=== PATIENT | male | born 1975 | race Caucasian/White ===

== ENCOUNTER → 2018-08-05 15:20 | Outpatient (CLI) | payer BC, SELFPAY ==
[2018-08-05 17:38] LABS: Hematocrit 44.7 % (40-54); Hemoglobin 14.6 g/dl (13.0-16.5); Mean Corp Hgb Conc 32.7 g/gl (32-36); Mean Corpuscular Hgb 28.1 pg (27.0-32.0); Mean Corpuscular Volume 86.1 fL (80-94); Mean Platelet Vol. 9.5 fl (6.2-12.0); Platelet Count 223 K/mm3 (150-450); RBC Distribution Width CV 13.4 % (11.6-14.6); RBC Distribution Width SD 42.1 fl (35.1-43.9); Red Blood Count 5.19 M/mm3 (4.6-6.2); Scan Indicated on CBC? Y/N NO; White Blood Count 6.4 K/mm3 (4.4-11.0)
[2018-08-05 17:54] LABS: Vitamin B12 696 pg/mL (211-911); Vitamin D,25 Hydroxy 24.1 ng/mL (29.95-100.01)
[2018-08-05 17:55] LABS: Cholesterol 141 mg/dL (200); Estradiol 19.3 pg/mL; Glucose 99 mg/dL (74-106); High Density Lipoprotein 40 mg/dL; Thyroid Stim Hormone (TSH) 1.89 uIU/mL (0.358-3.74); Triglycerides 83 mg/dL; Very Low Density Lipoprotein 17 mg/dL (5-40)
== END ==
PROVIDERS: Referring Provider Specialist; Visit Provider Specialist
DX: E27.40 Unspecified adrenocortical insufficiency (principal); E07.89 Other specified disorders of thyroid; R53.83 Other fatigue
CPT/HCPCS: 36415; 80061; 82306; 82607; 82670; 82947; 84153; 84403; 84443; 85027; G0103

== ENCOUNTER → 2020-09-18 16:53 | Outpatient (CLI) | payer BC, SELFPAY ==
[2020-09-18 17:49] LABS: Absolute Lymphocyte Count 2.21 X10^3/uL (0.83-4.51); Basophil% 1.2 % (0-1); Eosinophil# 0.22 X10^3/uL; Eosinophils% 2.6 % (0-5); Hematocrit 46.7 % (40-54); Hemoglobin 15.5 g/dL (13.0-16.5); Lymphocyte # 2.21 X10^3/ul (4.0); Lymphocyte % 26.3 % (19-41); Mean Corp Hgb Conc 33.2 g/dL (32-36); Mean Corpuscular Hgb 28.5 pg (27.0-32.0); Mean Platelet Vol. 9.7 fl (6.2-12.0); Monocyte# 0.85 X10^3/uL; Monocyte% 10.1 % (0-10); NRBC Flagged by Analyzer 0 % (0-5); Neutrophil # 4.98 X10^3/uL (2.7-7.7); Neutrophil % 59.4 % (47-70); Platelet Count 282 K/mm3 (150-450); RBC Distribution Width CV 13.2 % (11.6-14.6); RBC Distribution Width SD 40.6 fl (35.1-43.9); Red Blood Count 5.43 M/mm3 (4.6-6.2); White Blood Count 8.4 K/mm3 (4.4-11.0)
[2020-09-18 18:45] LABS: AST(SGOT) 37 U/L (15-37); Alanine Aminotransfer ALT/SGPT 65 U/L (16-61); Albumin, Serum 3.8 g/dL (3.2-5.0); Alkaline Phosphatase 118 U/L (45-117); Anion Gap 4 (5-15); BUN 14 mg/dL (7-18); BUN/Creat Ratio 15.9 RATIO (10-20); Calcium,Total 8.8 mg/dL (8.5-10.1); Chloride 112 mmol/L (98-107); Creatinine, Serum 0.88 mg/dL (0.70-1.30); EST Glomerular Filtration Rate 99 mL/min (>60); Est Glom Filt Rate - Afr Amer 120 mL/min (>60); Globulin 3.8 g/dL (2.2-4.2); Glucose 87 mg/dL (74-106); Potassium 3.9 mmol/L (3.5-5.1); Protein, Total 7.6 g/dL (6.4-8.2); Sodium Level 143 mmol/L (136-145)
== END ==
PROVIDERS: Visit Provider Podiatrist Foot & Ankle Surgery
DX: Z01.818 Encounter for other preprocedural examination (principal)
CPT/HCPCS: 36415; 80053; 85025

== ENCOUNTER → 2022-04-05 | Outpatient (CLI) | payer BC, SELFPAY ==
[2022-04-10 12:28] LABS: H. PYLORI STOOL AG Negative (Negative)
== END | disposition home or self-care (01) ==
PROVIDERS: PCP Family Medicine; Referring Provider Family Medicine; Visit Provider Family Medicine
DX: Z20.09 Contact with and (suspected) exposure to other intestinal infectious diseases (principal)

== ENCOUNTER 2023-02-11 11:19 | Emergency (ER) | payer OTHER, BC, SELFPAY ==
[2023-02-11 11:20] VITALS: BP 109/85; PULSE 68; RESP 18; TEMP 36.6; O2SAT 97; BMI 36.0
--- NOTE | 2023-02-11 11:31 | EX.ED.DYSGE1 ---
HPI History of Present Illness Chief Complaint: Lower Extremity Injury PFSH PFS Medical History no medical history Allergy/AdvReac Type Severity Reaction Status Date / Time Penicillins AdvReac Unknown PT UNSURE Verified 02/11/23 11:57 OF REACTION aspirin [ASA] AdvReac Bleeding Verified 02/11/23 12:19 Surgical History no surgical history Social History Smoking Status: Former smoker EXAM Physical Exam Const Vital Signs: 02/11/23 11:20 02/11/23 12:05 02/11/23 13:49 Temperature 97.8 F Temperature Source Oral Pulse Rate 68 82 Respiratory Rate 18 16 Blood Pressure 109/85 H 120/80 Blood Pressure Mean 93 93 Pulse Ox 97 98 95 Oxygen Delivery Method Room Air Room Air MDM MDM MDM Narrative Medical decision making narrative: HISTORY OF PRESENT ILLNESS: 47-year-old male here for right foot pain after dropping heavy object while at work. Patient states after this he became dizzy, lightheaded thought he may have lost consciousness. Denies any chest pain or shortness of breath. The patient denies recent surgery in the last 4 weeks or immobilization in the last 3 days, denies previous diagnosis of DVT or PE, hemoptysis, unilateral leg swelling or malignancy with treatment the last 6 months. No estrogen use noted. Patient denies sudden onset of pain, no tearing sensation, no migratory symptoms, no new numbness, weakness or loss of sensation. Patient denies family history or personal history of Marfan syndrome or Amy-Danlos REVIEW OF SYMPTOMS: Pertinent positives: Lightheadedness, dizziness, ankle pain, numbness Pertinent negatives: Chest pain, shortness of breath, focal weakness, loss of sensation PHYSICAL EXAM: Nursing triage notes reviewed, Vital signs reviewed Constitutional: please see mdm HENT: MMM Eyes: Pupils equal round and reactive to light, Extraocular muscles intact Neck: No stridor, no JVD, full neck ROM Lungs: Clear to auscultation, No wheezing or rales. No increased work of breathing, no conversational dyspnea, no accessory muscle use, no nasal flaring. No respiratory distress noted Heart: Regular rate and rhythm, No murmurs, No rubs and No gallops, 2+ distal pulses (radial, femoral, posterior tibial) in all extremities Abdomen: Soft, there is no tenderness, rigidity, rebound or guarding, no obvious peritoneal signs, no palpable pulsatile abdominal masses, no auscultated abdominal bruit : No CVAT Extremities: No edema, no obvious deformity, compartments are soft Neuro: Initial neuro exam: Alert and oriented x3, neuro exam at baseline, cranial nerves II through XII are intact. No pain with extraocular muscle movement. There is negative test of skew. Normal speech. 5 of 5 strength in upper and lower extremities in flexion extension. Intact sensation to light touch in upper and lower extremity dermatomes. No truncal or extremity ataxia. No dysdiadochokinesia. Normal gait. 2+ reflexes. No meningeal signs. Negative Babinski. NIH of 0. In bilateral lower extremities intact sensation L1-S1 dermatomal distributions. Intact 5/5 strength in hip flexion (T12-L3). Knee extension (L2-L4). Ankle dorsiflexion (L4-L5). Ankle plantar flexion (S1). Great toe extension (L5). 2+ patellar and Achilles DTRs. Repeat neuro exam: Alert and oriented x3, neuro exam at baseline, cranial nerves II through XII are intact. No pain with extraocular muscle movement. There is negative test of skew. Normal speech. 5 of 5 strength in upper and lower extremities in flexion extension. Intact sensation to light touch in upper and lower extremity dermatomes. No truncal or extremity ataxia. No dysdiadochokinesia. Normal gait. 2+ reflexes. No meningeal signs. Negative Babinski. NIH of 0 Skin: Small abrasion noted to the right medial malleolus, no obvious bruising, edema, lacerations MEDICAL DECISION MAKING: Chief Complaint: Syncope, right foot pain External records reviewed: No recent cardiac catheterization, stress test or echocardiogram noted MDM Narrative: I considered the following differential diagnosis: Vasovagal syncope, dehydration, arrhythmia, anemia, electrolyte abnormality fracture dislocation The patient was initially hemodynamically stable, afebrile, nontoxic-appearing. Exam without focal neurologic deficits, NIH of 0. Right ankle was neurovascular intact with no obvious deformities. Given the patient's report of feeling lightheaded, dizzy and his report of near syncope I obtained a broad lab and imaging work-up to further elucidate the etiology of the patient's complaints. Labs and images without significant findings to suggest myocardial ischemia, anemia, electrode abnormalities, pneumonia, fracture dislocation to the right ankle. Patient is likely suffering right ankle contusion which precipitated a vasovagal event. He was reassessed after 1 L normal saline states he felt symptomatically better. Repeat neurologic exam remained intact. The patient is appropriate for discharge home for outpatient evaluation management by his primary care physician. Strict return precautions were discussed. Family updated. All questions answered. I considered intracranial pathologies of subarachnoid hemorrhage however patient denied a headache. I also considered pulmonary embolism however patient had a low risk Wells score, PERC negative. I have a low suspicion for pulmonary VTE at this time. Also consider dissection however patient did not have any chest pain, pulse deficits or I considered acute CVA however patient no focal neurologic deficits NIH of 0 below suspicion for stroke at this time Aspirin was given for mortality benefit. Patient refused aspirin. Labs and images were remarkable for no evidence of significant anemia, electrolyte abnormalities, dehydration, myocardial ischemia. EKG without evidence of myocardial ischemia. Delta troponin was also negative. Factors affecting care: None Social determinants of health: Former smoker History obtained from others: The patient's , family friend Shared decision making: I will have a discussion with the patient and or visitors regarding risk/benefits of further testing or admission. They will be made aware of of the risk/benefits inherent in this decision they will be given the opportunity to voice understanding. Consults: None History & Record Review Discussion w/independent historian: Patient and Family Lab Data Attestation: I reviewed the patient's lab results. Lab results narrative: EKG with normal sinus rhythm, normal axis, normal intervals, no STEMI CBC without leukocytosis, severe anemia, no thrombocytopenia. Troponin is negative, no evidence of myocardial ischemia, delta troponin negative BMP with mild hypokalemia, no other significant electrolyte abnormalities, no anion gap to suggest end-organ hypoperfusion, Labs: Laboratory Results - last 24 hr 02/11/23 02/11/23 02/11/23 12:15 12:15 14:25 WBC 8.4 RBC 5.53 Hgb 15.6 Hct 46.5 MCV 84.1 MCH 28.2 MCHC 33.5 RDW Std Deviation 38.8 RDW Coeff of Martina 12.8 Plt Count 273 MPV 9.5 Immature Gran % (Auto) 0.200 Neut % (Auto) 49.7 Lymph % (Auto) 36.0 [place] % (Auto) 9.5 Eos % (Auto) 3.6 Baso % (Auto) 1.0 Absolute Neuts (auto) 4.2 Absolute Lymphs (auto) 3.02 Nucleated RBC % 0 Sodium 139 Potassium 3.1 L Chloride 105 Carbon Dioxide 25.0 Anion Gap 9 BUN 16 Creatinine 0.88 Estim Creat Clear Calc 98.24 Est GFR (MDRD) Af Amer 118 Est GFR (MDRD) Non-Af 98 BUN/Creatinine Ratio 18.2 Glucose 108 H Calcium 9.3 Troponin I High Sens 4 4 Radiography Chest X-Ray - ED: Read by ED Physician Diagnostic Testing: Clinical Impression(s) from Imaging Studies Chest X-Ray 02/11/23 12:05 IMPRESSION: Hyperinflation. The lungs are clear. Electronically Signed: Dawson Saldaña MD at 12:47 EDT , Ankle X-Ray 02/11/23 12:20 IMPRESSION: Plantar spur. No acute abnormality is seen. Electronically Signed: Dawson Saldaña MD at 12:46 EDT , I have personally reviewed the patient's chest x-ray. Chest x-ray is unremarkable for pulmonary edema, pneumothorax, pneumonia or focal cardiopulmonary abnormality. Discharge Plan Triage Chief Complaint: Lower Extremity Injury ED Provider: Tez Webb Dx/Rx/DC Orders Instructions: ED Contusion, Lower Extremity, ED Fainting, Vagal Reaction Stand Alone Forms: ED Work / School Excuse Primary Care Provider: MINA BARRY Referrals: MINA BARRY MD [Primary Care Provider] - Activity Restrictions/Additional Instructions: Thank you for trusting us with your care today! Please take Tylenol (2 pills, 650 mg), ibuprofen (2 pills, 400 mg) every 6 hours as needed for pain and fever control. Please return to the emergency department if your symptoms change or worsen. Please follow with your primary care physician for further outpatient evaluation and management. Disposition Disposition: Home, Self Care
[2023-02-11 12:05] VITALS: O2SAT 98
--- NOTE | 2023-02-11 12:05 | EKG12_ITS ---
Test Reason : Blood Pressure : / mmHG Vent. Rate : 074 BPM Atrial Rate : 074 BPM P-R Int : 188 ms QRS Dur : 080 ms QT Int : 384 ms P-R-T Axes : 046 010 003 degrees QTc Int : 426 ms Normal sinus rhythm Normal ECG Confirmed by PRESTON NICOLAS, LINA ([id number]), editorial assistant VINEET HARTMAN ([id number]) on 02/12/2023 12:54:57 P M Referred By: ONEL Confirmed By:ASHLEY JOHNSTON MD
--- NOTE | 2023-02-11 12:05 | RAD_ITS ---
STUDY: X-RAY CHEST REASON FOR EXAM: Male, 47 years old. Chest pain TECHNIQUE: Single AP portable view of the chest. COMPARISON: None. FINDINGS: EKG electrodes are seen. Hyperinflation. The lungs are clear. There is no demonstrated pleural abnormality. Normal size heart. Normal mediastinum and aguila. Normal visualized pulmonary arteries. Normal visualized aortic arch and descending thoracic aorta. There are diffuse degenerative changes of the visualized thoracic spine. Normal visualized ribs, clavicles, and shoulders. There is no demonstrated abnormality of the visualized soft tissue structures of the upper abdomen. RAD/Chest 1 View (Portable) IMPRESSION: Hyperinflation. The lungs are clear. Electronically Signed: Dawson Saldaña MD at 12:47 EDT ,
[2023-02-11] MEDS: 0.9% Normal Saline 1,000 ML 1000 ML IV (12:17)
--- NOTE | 2023-02-11 12:20 | RAD_ITS ---
STUDY: X-RAY - RIGHT ANKLE REASON FOR EXAM: Male, 47 years old. Ankle pain following injury. TECHNIQUE: 3 view(s) of the ankle. COMPARISON: None. FINDINGS: Normal visualized distal tibia and fibula. Normal medial and lateral malleoli. Normal tibiotalar articulation and ankle mortise. Plantar spur. The visualized subtalar, talonavicular, calcaneocuboid and tarsal articulations are normal. The soft tissue structures are unremarkable. RAD/Ankle min 3 Views IMPRESSION: Plantar spur. No acute abnormality is seen. Electronically Signed: Dawson Saldaña MD at 12:46 EDT ,
[2023-02-11 12:21] LABS: Absolute Lymphocyte Count 3.02 X10^3/uL (0.83-4.51); Absolute Neutrophil Count 4.2 X10^3/uL (2.0-7.7); Basophil# 0.08 X10^3/uL; Eosinophils% 3.6 % (0-5); Hematocrit 46.5 % (40-54); Hemoglobin 15.6 g/dL (13.0-16.5); Lymphocyte # 3.02 X10^3/ul (0.83-4.51); Mean Corp Hgb Conc 33.5 g/dL (32-36); Mean Corpuscular Hgb 28.2 pg (27.0-32.0); Mean Corpuscular Volume 84.1 fL (80-94); Mean Platelet Vol. 9.5 fl (6.2-12.0); Monocyte% 9.5 % (0-10); NRBC Flagged by Analyzer 0 % (0-5); Neutrophil # 4.18 X10^3/uL (2.7-7.7); Neutrophil % 49.7 % (47-70); Platelet Count 273 K/mm3 (150-450); RBC Distribution Width CV 12.8 % (11.6-14.6); RBC Distribution Width SD 38.8 fl (35.1-43.9); Red Blood Count 5.53 M/mm3 (4.6-6.2); White Blood Count 8.4 K/mm3 (4.4-11.0)
[2023-02-11 12:38] LABS: Anion Gap 9 (5-15); BUN 16 mg/dL (7-18); BUN/Creat Ratio 18.2 RATIO (10-20); Calcium,Total 9.3 mg/dL (8.5-10.1); Chloride 105 mmol/L (98-107); Creatinine, Serum 0.88 mg/dL (0.70-1.30); EST Glomerular Filtration Rate 98 mL/min (>60); Est Glom Filt Rate - Afr Amer 118 mL/min (>60); Estimated Creatinine Clearance 98.24 ml/min; Glucose 108 mg/dL (74-106); Potassium 3.1 mmol/L (3.5-5.1); Sodium Level 139 mmol/L (136-145); Troponin-I HS (w/2H Reflex) 4 pg/mL (3.0-78.0)
[2023-02-11 13:49] VITALS: BP 120/80; PULSE 82; RESP 16; O2SAT 95
[2023-02-11 14:17] LABS: Reflex Troponin-HS? (from REC) Y
[2023-02-11 14:51] LABS: Troponin-I HS 4 pg/mL (3.0-78.0)
[2023-02-11] MEDS: Potassium Chloride Oral Tablet 20 MEQ 40 MEQ PO (15:16)
[2023-02-11 15:19] VITALS: BP 117/87; RESP 16; O2SAT 98
== END 2023-02-11 15:21 | disposition home or self-care (01) ==
PROVIDERS: Emergency Provider Emergency Medicine; PCP Family Medicine; Visit Provider Emergency Medicine
DX: S90.01XA Contusion of right ankle, initial encounter (principal); R55 Syncope and collapse; R42 Dizziness and giddiness; Z87.891 Personal history of nicotine dependence; W20.8XXA Other cause of strike by thrown, projected or falling object, initial encounter; Y99.0 Civilian activity done for income or pay; Y92.89 Other specified places as the place of occurrence of the external cause
CPT/HCPCS: 36415; 71045; 73610; 80048; 84484; 85025; 93005; 96360; 99285; J7030; A4216

== ENCOUNTER 2023-03-26 17:50 | Emergency (ER) | payer BC, SELFPAY ==
[2023-03-26 17:52] VITALS: BP 141/106; PULSE 90; RESP 14; TEMP 36.6; O2SAT 96; BMI 34.4
--- NOTE | 2023-03-26 18:01 | CT_ITS ---
EXAM: CT Abdomen And Pelvis W/O Contrast Injection HISTORY: Pain UMBILICAL HERNIA, PAIN INTO GROIN. TECHNIQUE: Routine protocol CT abdomen and pelvis. IV Contrast: None.. Oral contrast: None. RADIATION DOSAGE (If Supplied By Facility): CTDIvol = ( 18.05 ) mGy, DLP = ( 996.58 ) mGycm Individualized dose optimization techniques were used for this CT. COMPARISON: CT abdomen and pelvis 04/01/2017. LIMITATIONS: None. FINDINGS: LOWER CHEST: Included lung bases are clear. LIVER: Grossly unremarkable. GALLBLADDER AND BILIARY TREE: Grossly unremarkable. PANCREAS: Grossly unremarkable. SPLEEN: Small calcifications previous granulomatous process. ADRENAL GLANDS: Grossly unremarkable. KIDNEYS AND URETERS: No calculi demonstrated. No hydronephrosis. PERITONEUM: No free air. No free fluid. BOWEL: No bowel obstruction. APPENDIX: Visualized and unremarkable. No evidence of acute appendicitis. VESSELS: Abdominal aorta is normal caliber. REPRODUCTIVE ORGANS: Grossly unremarkable URINARY BLADDER: Grossly unremarkable. ABDOMINAL WALL: Small right paraumbilical hernia contains only fat, no bowel, with small amount of fluid and mild stranding in the hernia sac. Overlying skin thickening. Small bilateral inguinal hernias containing only fat, no bowel, with no associated inflammatory changes. BONES: No acute abnormalities. CT/Abdomen/Pelvis without Cont IMPRESSION: Small fat-containing right periumbilical hernia with findings that can be seen with incarceration. Small fat-containing bilateral inguinal hernias without evidence of complication. No acute intra-abdominal findings. Electronically Signed: Abigail Hunter MD at 18:57 EDT ,
--- NOTE | 2023-03-26 18:02 | ED.VIS.GI ---
HPI HPI - GI History of Present Illness Chief Complaint: Abd Pain Detail of Chief Complaint: Abdominal pain Informant: patient Narrative Narrative: Abdominal pain that became severe about an hour ago. Patient presents to the emergency department with complaint of abdominal pain that initially was more mild yesterday. Today sudden onset of severe pain in the right lower abdomen and into his back and radiating into his groin. Patient also states that he has an umbilical hernia which she pushed in yesterday but seems to be more tender than usual. He has nausea but no vomiting. Denies fevers. Patient does have some urinary frequency. He denies hematuria. No history of kidney stones. Patient denies blood in his stool or black tarry stool. [facility] Medical History (Updated 03/26/23 @ 19:[address] Ines Nazario DO) Asthma Contusion of right ankle Vasovagal syndrome Home Medications hydrocodone-acetaminophen 5-325mg 5mg-325mg 1 tab PO Q4H PRN PRN Pain 2 days #10 TABLETS 03/26/23 [Rx Last Taken Unknown] meloxicam 15 mg tablet 15 mg PO DAILY 03/26/23 [History Last Taken Unknown] Allergy/AdvReac Type Severity Reaction Status Date / Time Penicillins AdvReac Unknown PT UNSURE Verified 03/26/23 17:51 OF REACTION aspirin [ASA] AdvReac Bleeding Verified 03/26/23 17:51 Family History no significant family his Surgical History Hx of tonsillectomy Social History Smoking Status: Former smoker alcohol intake: never ROS ROS ED Review of Systems ROS Unobtainable: other Constitutional Constitutional ED: Reports lethargy; Denies chills, fever(s), sweats or weight loss Eyes Eyes: Denies blurry vision, change in vision or diplopia ENT ENT ED: Denies rhinorrhea or sore throat Cardiovascular Cardiovascular: Denies chest pain, orthopnea or racing heartbeat Respiratory/Chest Respiratory/Chest: Denies cough, dyspnea, dyspnea on exertion, orthopnea or sputum Gastrointestinal Gastrointestinal: Reports abdominal pain and nausea; Denies diarrhea or vomiting Genitourinary Genitourinary ED: Denies dysuria, hematuria or urinary frequency Musculoskeletal Musculoskeletal: Denies arthralgias, back pain, myalgias or neck pain Integumentary Denies abscess, Abrasions or rash Neurologic Neurologic: Denies headache(s) or weakness Psychiatric Psychiatric: Denies anxiety, depression or suicidal thoughts Endocrine Endocrinology: Denies polydipsia, polyphagia or polyuria Hematologic/Lymphatic Hematologic/Lymphatic: Denies easy bleeding, easy bruising or lymphadenopathy Allergic/Immunologic Allergic/Immunologic ED: Denies mouth swelling, tongue swelling or urticaria EXAM Physical Exam Const Vital Signs: 03/26/23 17:52 Temperature 98 F Temperature Source Temporal Pulse Rate 90 Respiratory Rate 14 Blood Pressure 141/106 H Blood Pressure Mean 117 Pulse Ox 96 Oxygen Delivery Method Room Air Positive well nourished and well developed General Appearance ED: well developed and NAD HEENT Reports TM's clear and moist mucous membranes normocephalic and atraumatic; Negative for trauma or tenderness Tympanic Membrane ED: Yes TM's clear Eyes PERRL and EOMs intact bilaterally General Eye ED: Negative for pale conjunctiva or scleral icterus Neck no lymphadenopathy, supple and no JVD General: Negative for tenderness Chest Wall inspection of chest normal and palpation of chest normal Chest: Negative for tenderness Resp normal respiratory effort and clear to auscultation bilaterally Effort and Inspection: Negative for respiratory distress or pain with movement Auscultation: Negative for rhonchi, wheezes or diminished lung sounds Cardio regular rate, regular rhythm, S1 normal heart sound, S2 normal heart sound and no murmurs Peripheral Pulses: pulses 2+ throughout GI normal to inspection, nondistended, normoactive bowel sounds, soft to palpation, non-distended and no masses GI Narrative: Patient does have a umbilical hernia that seems to be reducible for the most part. I do not appreciate any evidence of strangulation or incarceration. He also has tenderness palpation of the right lower quadrant. He is got CVA tenderness on the right. No rebound, rigidity, or pedal signs. No mass palpated otherwise. Narrative: Circumcised male. Both testicles descended and no evidence of torsion. No significant tenderness on exam of the testicles. I do not appreciate any inguinal hernias on exam. Back/Spine no CVA tenderness and no thoracic nor lumbar tenderness Extremity normal to inspection General Extremety ED: Negative for edema General Extremity: Negative for edema Neuro oriented x3, CN's II-XII intact bilaterally, no sensory deficits noted and gait normal Sensorium / Orientation: awake, alert, oriented to person, oriented to place and oriented to time Motor Exam: strength 5/5 throughout and strength abnormal Psych mental status grossly normal Skin no rashes or lesions noted and no wounds MDM MDM MDM Narrative Medical decision making narrative: Patient presents with right-sided abdominal pain rather sudden onset. Also has an umbilical hernia. In the differential would be a kidney stone versus car serrated umbilical hernia or bowel obstruction. IV line will be established. Patient was medicated with Dilaudid and Zofran as well as Toradol. Patient will have basic labs and a CT scan of the abdomen pelvis. I will order a lactate. CBC with differential was unremarkable. Chemistries unremarkable. Lactate was normal at 1.4. I did obtain a CT scan of the abdomen pelvis which showed an umbilical hernia containing fat with signs of possible strangulation. After patient was medicated I did have him lay flat after he came back from CT and I was able to manipulate the hernia in reduce it I felt relatively completely and a lot of his discomfort resolved. I did discuss case with Dr. Negro who is on for general surgery who recommended patient follow-up with his office tomorrow given that there is no bowel within the hernia and only fat. As long as he was comfortable he can have pain medicine for home and follow-up with his office tomorrow. Patient will be advised to return to the ER if worsening pain, fever, vomiting, or condition should worsen anyway. Lab Data Attestation: I reviewed the patient's lab results. Labs: Laboratory Results - last 24 hr 03/26/23 03/26/23 03/26/23 18:03 18:03 18:08 WBC 10.4 RBC 5.54 Hgb 15.8 Hct 47.1 MCV 85.0 MCH 28.5 MCHC 33.5 RDW Std Deviation 41.0 RDW Coeff of Martina 13.2 Plt Count 288 MPV 9.1 Immature Gran % (Auto) 0.400 Neut % (Auto) 63.1 Lymph % (Auto) 24.1 [place] % (Auto) 8.0 Eos % (Auto) 3.3 Baso % (Auto) 1.1 H Absolute Neuts (auto) 6.6 Absolute Lymphs (auto) 2.51 Nucleated RBC % 0 Sodium 143 Potassium 3.9 Chloride 110 H Carbon Dioxide 27.0 Anion Gap 6 BUN 20 H Creatinine 1.01 Estim Creat Clear Calc 88.47 Est GFR (MDRD) Af Amer 101 Est GFR (MDRD) Non-Af 83 BUN/Creatinine Ratio 19.8 Glucose 121 H Lactic Acid 1.4 Calcium 9.9 Urine Color Urine Clarity Urine pH Ur Specific [place] Urine Protein Urine Glucose (UA) Urine Ketones Urine Occult Blood Urine Nitrite Urine Bilirubin Urine Urobilinogen Ur Leukocyte Esterase 03/26/23 19:00 WBC RBC Hgb Hct MCV MCH MCHC RDW Std Deviation RDW Coeff of Martina Plt Count MPV Immature Gran % (Auto) Neut % (Auto) Lymph % (Auto) [place] % (Auto) Eos % (Auto) Baso % (Auto) Absolute Neuts (auto) Absolute Lymphs (auto) Nucleated RBC % Sodium Potassium Chloride Carbon Dioxide Anion Gap BUN Creatinine Estim Creat Clear Calc Est GFR (MDRD) Af Amer Est GFR (MDRD) Non-Af BUN/Creatinine Ratio Glucose Lactic Acid Calcium Urine Color Yellow Urine Clarity Clear Urine pH 6.0 Ur Specific [place] 1.025 Urine Protein 15 H Urine Glucose (UA) Normal Urine Ketones Negative Urine Occult Blood 25 H Urine Nitrite Negative Urine Bilirubin Negative Urine Urobilinogen Normal Ur Leukocyte Esterase Negative Radiography Diagnostic Testing: Clinical Impression(s) from Imaging Studies Abdomen/Pelvis CT 03/26/23 18:01 IMPRESSION: Small fat-containing right periumbilical hernia with findings that can be seen with incarceration. Small fat-containing bilateral inguinal hernias without evidence of complication. No acute intra-abdominal findings. Electronically Signed: Abigail Hunter MD at 18:57 EDT Reading Location ID and State: [facility] / [place] Tel , Service support , Discharge Plan Triage Chief Complaint: Abd Pain ED Provider: Ines Nazario Dx/Rx/DC Orders Clinical Impression: Hernia, umbilical Instructions: ED Hernia (Adult) Prescriptions: New hydrocodone-acetaminophen [hydrocodone-acetaminophen] 5-325 mg tablet 1 tab PO Q4H PRN PRN (Reason: Pain) 2 Days Qty: 10 0RF No Action meloxicam 15 mg tablet 15 mg PO DAILY Label Comments: TAKE 1 TABLET BY MOUTH DAILY FOR 14 DAYS Stand Alone Forms: ED Work / School Excuse Primary Care Provider: MINA BARRY Referrals: Pj Negro MD [Med Staff - Active Staff] - 1 Day MINA BARRY MD [Primary Care Provider] - Activity Restrictions/Additional Instructions: Call Dr. Negro's office tomorrow at 7 AM to be seen tomorrow morning Disposition Disposition: Home, Self Care Discharge Date/Time: 03/26/23 19:54
[2023-03-26] MEDS: HYDROmorphone 1 MG/ML Syringe IV (18:09)
[2023-03-26] MEDS: Ondansetron 4 MG/2 ML Vial IV ×2 (18:09→18:49)
[2023-03-26] MEDS: 0.9% Normal Saline 1,000 ML 125 ML IV (18:15)
[2023-03-26 18:18] LABS: Absolute Lymphocyte Count 2.51 X10^3/uL (0.83-4.51); Absolute Neutrophil Count 6.6 X10^3/uL (2.0-7.7); Basophil# 0.11 X10^3/uL; Basophil% 1.1 % (0-1); Eosinophil# 0.34 X10^3/uL; Eosinophils% 3.3 % (0-5); Hematocrit 47.1 % (40-54); Hemoglobin 15.8 g/dL (13.0-16.5); Lymphocyte # 2.51 X10^3/ul (0.83-4.51); Lymphocyte % 24.1 % (19-41); Mean Corp Hgb Conc 33.5 g/dL (32-36); Mean Corpuscular Hgb 28.5 pg (27.0-32.0); Mean Platelet Vol. 9.1 fl (6.2-12.0); Monocyte# 0.83 X10^3/uL; NRBC Flagged by Analyzer 0 % (0-5); Neutrophil # 6.57 X10^3/uL (2.7-7.7); Neutrophil % 63.1 % (47-70); Platelet Count 288 K/mm3 (150-450); RBC Distribution Width CV 13.2 % (11.6-14.6); Red Blood Count 5.54 M/mm3 (4.6-6.2); White Blood Count 10.4 K/mm3 (4.4-11.0)
[2023-03-26] MEDS: Ketorolac 15 MG/ML Vial IV (18:19)
[2023-03-26 18:33] LABS: Anion Gap 6 (5-15); BUN 20 mg/dL (7-18); BUN/Creat Ratio 19.8 RATIO (10-20); Calcium,Total 9.9 mg/dL (8.5-10.1); Chloride 110 mmol/L (98-107); Creatinine, Serum 1.01 mg/dL (0.70-1.30); EST Glomerular Filtration Rate 83 mL/min (>60); Est Glom Filt Rate - Afr Amer 101 mL/min (>60); Estimated Creatinine Clearance 88.47 ml/min; Glucose 121 mg/dL (74-106); Potassium 3.9 mmol/L (3.5-5.1); Sodium Level 143 mmol/L (136-145)
[2023-03-26 18:42] LABS: Lactic Acid 1.4 mmol/L (0.4-1.9)
[2023-03-26 19:49] LABS: Bacteria 0 SEEN /hpf (None Seen); Mucous, Urine 0 SEEN /hpf (<or=2+); Squamous Epithelial Cells - UA 0 SEEN /hpf (0-5); White Blood Cells 0 SEEN /hpf (0-5)
[2023-03-26 19:54] LABS: Color, Urine Yellow (Yellow); Glucose, Dipstick Normal (Normal); Ketone-Dipstick Negative (Negative); Leukocyte Esterase-Dipstick Negative /ul (Negative); Nitrite-Dipstick Negative (Negative); Occult Blood-Urine 25 /ul (Negative); Protein-Dipstick 15 mg/dl (Negative); Specific Gravity, Urine 1.025 (1.002-1.030); Urine Bilirubin Dipstick Negative (Negative); Urine Clarity Clear (Clear); Urine Urobilinogen Normal (Normal)
[2023-03-26 20:12] LABS: Red Blood Cells-Urine 0-5 SEEN /hpf (0-5)
== END 2023-03-26 19:54 | disposition home or self-care (01) ==
PROVIDERS: Emergency Provider Emergency Medicine; PCP Family Medicine; Visit Provider Emergency Medicine
DX: K42.9 Umbilical hernia without obstruction or gangrene (principal); Z87.891 Personal history of nicotine dependence
CPT/HCPCS: 74176; 80048; 81001; 83605; 85025; 96361; 96374; 96375; 96376; 99283; J7030; A4216; J2405

== ENCOUNTER 2023-04-01 11:03 | Day surgery (SDC) | payer BC, SELFPAY ==
[2023-04-01 12:01] VITALS: BP 130/94; PULSE 81; RESP 16; TEMP 36.7; O2SAT 97; BMI 35.4
[2023-04-01] MEDS: Lactated Ringers 1,000 ML 15 ML IV ×2 (12:06→14:49)
--- NOTE | 2023-04-01 13:05 | PCM.HP.BLA ---
History and Physical Date of Admission: 04/01/23 Intake Vital Signs ? 03/26/2317:52 03/27/2310:04 Height 5 ft 9 in 5 ft 9 in Weight: 232 lb 14.4 oz 237 lb BMI 34.4 34.9 BP 141/106 H 122/73 H Blood Pressure Location ? Rt brachial Position ? Sitting Respiration 14 17 Pulse 90 65 Pulse Source ? Monitor Temp 98 F 96.2 F L Temp Source Temporal Temporal Pulse Oximetry (%) 96 96 Oxygen Delivery Method ? room air Intake Visit Reasons:?UMBILICAL HERNIA ER 03/26 Chief Complaint: umbilical hernia ER 03/26 Is patient in pain?: Yes Allergies Penicillins Adverse Reaction (Unknown, Verified 03/27/23 10:05) PT UNSURE OF REACTIONaspirin [ASA] Adverse Reaction (Verified 03/27/23 10:05) Bleeding Medications hydrocodone-acetaminophen 5-325mg 5mg-325mg 1 tab PO Q4H PRN PRN Pain 2 days #10 TABLETS 03/26/23 [Rx Confirmed 03/27/23] meloxicam 15 mg tablet 15 mg PO DAILY 03/26/23 [History Confirmed 03/27/23] PFSH Medical History?(Updated 03/27/23 @ 10:[address] Pj Negro MD) Asthma Contusion of right ankle Vasovagal syndrome Surgical History? Hx of tonsillectomy Social History? Smoking Status:? Former smoker alcohol intake:? never HPI HPI HPI: Patient is a 47-year-old male who was in the emergency room yesterday with umbilical pain.? The patient reports he has had an umbilical hernia for 6 years but he usually pushes it back in but now all of a sudden got very painful yesterday.? Today the pain is better after it was reduced yesterday in the emergency room.? Patient denies any nausea or vomiting or fevers or chills. ROS General General: Yes fatigue; No weight change, appetite, colon cancer, breast cancer or weakness HEENT HEENT: No difficulty swallowing, eye injury, eye surgery, swollen glands or hoarseness Endo Endocrine: No thyroid disease, diabetes mellitus, thyroid cancer, Hair loss, heat intolerance or cold intolerance Skin Skin: No rash or changing moles Musc Musculoskeletal: Yes arthritis; No back problems, rheumatoid arthritis, gout or joint pain Cardio Cardiovascular: No murmur, pacemaker, heart disease, atrial fibrillation, high blood pressure, heart attack, heart stent, palpitations, shortness of breat with exertion or chest pain Psych Psychiatric: No depression, anxiety or hearing voices Resp Respiratory: No shortness of breath, No sleep apnea, No cough, No COPD, Yes asthma, No emphysema and No wheezing Gastro Gastrointestinal: Yes abdominal pain, No nausea or vomiting, Yes diarrhea, Yes constipation, No blood in stool, No acid reflux, No hemorrhoids, No ulcers, No gallbladder problem and No black,tarry stools Tha Hematologic: No blood thinners, No blood disorders, No bleeding, No anemia and No blood clots Neuro Neurologic: No system reviewed and no additional complaints, except as documented, No as per HPI, No abnormal gait, No abnormal hearing, No abnormal movements, No abnormal speech, No behavioral changes, No burning sensations, No confusion, No convulsions, No disequilibrium, No dizziness, No localized weakness, No frequent falls, No headache(s), No lack of coordination, No loss of vision, No memory loss, No numbness, No other visual disturbances, No radicular pain, No restless legs, No sensory deficit, No syncope, No tingling, No tremor(s), No weakness and No other Exam Const General: cooperative Orientation: alert and oriented x3 [facility] Head: normal to inspection Neck Neck: normal visual inspection and full ROM Chest Chest palpation & inspection: normal inspection of the chest Resp Effort & Inspection: normal respiratory effort Auscultation: clear to auscultation bilaterally Cardio Rate: regular rate Rhythm: regular rhythm GI Inspection: non-distended Palpation: soft, hernia umbilical and nontender Skin General: no rashes or lesions noted Neuro General: patient alert and patient oriented x3 Extrem General: full ROM Psych Appearance: grossly normal Mental Status: mental status grossly normal Assessment and Plan Assessment and Plan (1) Hernia, umbilical: ?Status:?Acute ?Qualifiers: ?Obstruction and gangrene presence:?without obstruction or gangrene? Qualified Code(s):?K42.9 - Umbilical hernia without obstruction or gangrene ?Plan: Patient has a painful umbilical hernia he would like repaired.? I discussed open umbilical hernia repair with mesh with the patient in detail.? I discussed the risks including but not limited to bleeding, infection, injury to underlying organs.? Patient understands all the risks and will be scheduled for umbilical hernia repair with mesh. Pj Negro MD Pager: [facility] [address] [place] [address], [address] [place] [address] Office: I have examined the patient and the H&P has been reviewed. There are no clinical changes since date of exam.
--- NOTE | 2023-04-01 13:25 | HERN_PTH ---
PATIENT: LAUREN GARCIA Jr. LOC: [facility] U#:[id number] AGE/SX: 47/M ROOM: RE04/01/[address]: Dr. Pj Negro MD : 1975 BED: DIS: 04/01/2023 SPEC #: [id number] RECD: 04/01/23 15:08 STATUS: SAMMY RENellie #: [id number] HEIDI: 04/01/23 13:[address]: Pj Negro DEPT: SURGICAL PATHOLOGY RECD BY: Maryellen Lopes ENTERED: 04/02/23 08:43 SP TYPE: Hernia OTHR DR: MINA BARRY MD Tissues: HERNIA Procedures: Surgery Specimen Level II HEADER OPERATION: Umbilical hernia repair with mesh PRE-OP DIAGNOSIS: Umbilical hernia TISSUE SUBMITTED: Umbilical hernia sac MICROSCOPIC DIAGNOSIS Umbilical hernia sac: A piece of fibroadipose and fibroconnective tissue, consistent with hernia sac. SJ:santos 04/03/2023 MICROSCOPIC DESCRIPTION Slides are reviewed. GROSS DESCRIPTION Received in fixative is one container labeled with the patient's name and designated umbilical hernia sac. The specimen consists of an irregular piece of watkins soft tissue measuring 2.5 x 1.5 x 0.3 cm. The specimen is serially sectioned and submitted entirely in one cassette. / SJ:santos 04/02/2023 TC:5 CPT: 56227
[2023-04-01] MEDS: Bupivacaine Mpf 0.5% 30 ML VIAL (13:46)
--- NOTE | 2023-04-01 14:28 | OP.PCM_ITS ---
Report of Operation Date of Procedure: 04/01/23 Pre-Operative Diagnosis: Umbilical Post-Operative Diagnosis: Umbilical hernia Surgery/Procedure Performed:: Umbilical hernia repair with mesh less than 3 cm Specimen's removed: Hernia sac Description of Procedure: Patient brought to the operating room and general anesthesia was induced. The abdomen was prepped and draped in usual sterile fashion. A curvilinear incision was marked superior to the umbilicus and injected with local anesthetic. Incision was made with a scalpel. The hernia sac was dissected free from the umbilical stalk using sharp and electrocautery dissection. The hernia sac was then opened as I was unable to reduce the entire contents. Hernia sac was removed and sent for pathology. The fatty contents of the hernia were reduced. The anterior fascia was cleaned of any fat and then elevated and then the inferior edge of the fascia was cleaned from the preperitoneal fat to allow for a space. Next a small Ventralex mesh was placed in the preperitoneal space. It was sutured to the anterior fascia using interrupted 2-0 PDS suture. The area was irrigated and suctioned dry and the fascia was reapproximated using several interrupted 0 Nurolon sutures in a transverse fashion. The subcutaneous tissue was irrigated and suctioned dry once more. The umbilical stalk was tacked to the fascia using 3-0 Vicryl suture. The incision was closed with interrupted 3- 0 Vicryl's and a running 4-0 Monocryl. Steri-Strips and bandage were applied. Patient was awoken and taken to PACU in stable condition. Grafts/Implants Used: Small Ventralex ST mesh Admit VTE Documentation VTE Mechan Device Prophylaxis: SCD's
--- NOTE | 2023-04-01 14:32 | DCINST_ITS ---
Discharge Instructions Procedure Hernia Diet Discharge Diet: Light diet - advance as tolerated Activity Discharge Activity: May Not Drive (for 2-3 days or while taking narcotic pain meds.) and May Shower (with the bandage in place 1-2 days after surgery.) Lifting Restrictions: 20 pounds for 4 weeks. Additional Activity Instructions:: Climbing stairs is fine, walking is encouraged. Sitting in bed may be uncomfortable. Sitting up using your lateral muscles (sitting up sideways) is usually more comfortable. Do not drive, work heavy equipment of sign legal documents for 24 hours. Pain medications may cause nausea, you should typically eat light foods as you take your pain medications. Pain medications may also cause constipation. If you have difficulty with this, discuss with your doctor. Dressing / Incision Call your doctor if your incision/area has: Continuous Slow Oozing, Sudden Increased Bleeding, Increased Pain/ Swelling, Increased Redness and Foul Smelling Discharge Call your doctor if you observe: Fever of 101 or Higher Suture Line Care: Avoid Pulling/Pushing and Avoid Pinching/Bending Remove Dressing in: 2 days (Remove clear bandages in 2 days, remove Steri-Strips in 7 to 10 days.) Cleanse incision/area with: Soap & Water Follow Up Care Please Follow Up With: Pj Negro MD When: Please call to schedule 2 week follow up appointment. [phone] Test Results: Test results from this visit will be discussed in further detail at your follow- up appointment, if applicable. Discharge Plan Admission Attending Provider: Pj Negro Primary Care Provider: MINA BARRY Instructions Additional Instructions / Restrictions: Alternate ibuprofen and Tylenol for pain, Percocet for breakthrough pain. Discharge Orders/Prescriptions Prescriptions: New oxycodone-acetaminophen [Percocet] 5-325 mg tablet 1 tab PO Q6H PRN (Reason: pain) 5 Days Qty: 20 0RF No Action meloxicam 15 mg tablet 15 mg PO DAILY Label Comments: TAKE 1 TABLET BY MOUTH DAILY FOR 14 DAYS oxycodone 5 mg tablet 5 mg PO Q6H PRN (Reason: pain) 4 Days Qty: 16 0RF Referrals / Follow Up: MINA BARRY MD [Primary Care Provider] - Disposition Disposition (needs filled in before D/C Order can be placed): Home, Self Care
[2023-04-01 14:41] VITALS: BP 130/94; BP 97/53; PULSE 87; RESP 18; TEMP 36.3; O2SAT 97
[2023-04-01 14:46] VITALS: BP 130/94; BP 92/63; PULSE 84; RESP 18; O2SAT 97
[2023-04-01 15:00] VITALS: BP 117/52; BP 130/94; PULSE 89; RESP 18; O2SAT 93
--- NOTE | 2023-04-01 15:17 | SUR.PHASEI ---
PATIENT C/O BACK AND NECK PAIN/ ACHINESS. ICE PACK GIVEN TO APPLY TO THE BACK OF HIS NECK ALONG WITH REPOSITIONING HIM TO A MORE SITTING POSITION TO HELP HIS DISCOMFORT.
[2023-04-01 15:19] VITALS: BP 123/64; BP 130/94; PULSE 90; RESP 18; TEMP 36.4; O2SAT 97
[2023-04-01] MEDS: oxyCODONE 5 MG Tablet PO (16:05)
[2023-04-01] MEDS: Acetaminophen 325 MG Tablet PO (16:05)
[2023-04-01 16:19] VITALS: BP 130/94
== END 2023-04-01 16:28 | disposition home or self-care (01) ==
LOC: SDC 11:07 → AC 11:08
PROVIDERS: PCP Family Medicine; Referring Provider Surgery; Visit Provider Surgery
PROC: (CPT 49591; principal; 2023-04-01 13:10)
DX: K42.9 Umbilical hernia without obstruction or gangrene (principal); Z87.891 Personal history of nicotine dependence; J45.909 Unspecified asthma, uncomplicated
CPT/HCPCS: 49591; 00830; 88302; J7120; C1781; J2405

== ENCOUNTER → 2024-10-22 | Outpatient (CLI) | payer BC, SELFPAY ==
[2024-10-22 10:46] LABS: Hematocrit 46.4 % (40-54); Hemoglobin 15.4 g/dL (13.0-16.5); Mean Corp Hgb Conc 33.2 g/dL (32-36); Mean Corpuscular Hgb 28.4 pg (27.0-32.0); Mean Corpuscular Volume 85.5 fL (80-94); Mean Platelet Vol. 9.5 fl (6.2-12.0); Platelet Count 264 K/mm3 (150-450); RBC Distribution Width CV 13.2 % (11.6-14.6); RBC Distribution Width SD 40.7 fl (35.1-43.9); Red Blood Count 5.43 M/mm3 (4.6-6.2); White Blood Count 6.1 K/mm3 (4.4-11.0)
[2024-10-22 14:21] LABS: AST(SGOT) 25 U/L (15-37); Alanine Aminotransfer ALT/SGPT 40 U/L (16-61); Albumin, Serum 3.5 g/dL (3.2-5.0); Alkaline Phosphatase 96 U/L (45-117); Anion Gap 3 (5-15); BUN 9 mg/dL (7-18); Calcium,Total 8.7 mg/dL (8.5-10.1); Chloride 109 mmol/L (98-107); Cholesterol 178 mg/dL (200); Creatinine, Serum 0.82 mg/dL (0.70-1.30); EST Glomerular Filtration Rate 105 mL/min (>60); Est Glom Filt Rate - Afr Amer 127 mL/min (>60); Globulin 3.6 g/dL (2.2-4.2); Glucose 101 mg/dL (74-106); High Density Lipoprotein 44 mg/dL; Potassium 4.3 mmol/L (3.5-5.1); Protein, Total 7.1 g/dL (6.4-8.2); Sodium Level 140 mmol/L (136-145); Triglycerides 117 mg/dL; Very Low Density Lipoprotein 23 mg/dL (5-40)
== END | disposition home or self-care (01) ==
DX: Z00.00 Encounter for general adult medical examination without abnormal findings (principal); Z11.59 Encounter for screening for other viral diseases; Z13.220 Encounter for screening for lipoid disorders
CPT/HCPCS: 36415; 80053; 80061; 85027

== ENCOUNTER 2025-09-15 10:02 | Emergency (ER) | payer BC, SELFPAY ==
[2025-09-15 10:03] VITALS: BP 142/86; PULSE 99; RESP 18; TEMP 37.2; O2SAT 99; BMI 37.4
--- NOTE | 2025-09-15 10:31 | RAD_ITS ---
PROCEDURE: CHEST 1 VIEW (PORTABLE) 09/15/2025 REASON FOR EXAM: SYNCOPE TECHNIQUE: Frontal view of the chest. COMPARISON: February 11, 2023 FINDINGS: Hardware: EKG leads Heart: The heart size is normal. Lungs: The lungs are clear. Bones: The bones are unremarkable. RAD/Chest 1 View (Portable) IMPRESSION: No acute cardiopulmonary process. Reading Location: [id number]
--- NOTE | 2025-09-15 10:31 | EKG12_ITS ---
Test Reason : PASSED OUT Blood Pressure : */* mmHG Vent. Rate : 85 BPM Atrial Rate : 85 BPM P-R Int : 188 ms QRS Dur : 82 ms QT Int : 344 ms P-R-T Axes : 59 24 14 degrees QTcB Int : 409 ms Normal sinus rhythm Normal ECG Confirmed by PRESTON NICOLAS, LINA ([id number]), acquisition editor SHANNON CAMARILLO ([id number]) on 09/19/2025 6:28:37 AM Referred By: LILIAN Confirmed By: LINA JOHNSTON MD
--- NOTE | 2025-09-15 10:33 | EX.ED.DYSGE1 ---
HPI History of Present Illness Chief Complaint: Syncope Informant: patient Narrative Narrative: 60-year-old male presenting to the emergency room with head injury following syncopal episode. Patient states for the past couple days he has had a cough/chest cold. He woke up today feeling pretty good. He got up got dressed was making his lunch. States all of a sudden he felt some nausea and was unsure if he is going have a diarrheal episode or vomit. He went to the bathroom and he states the next thing he remembers was waking up on the ground. He notes he struck his head and had a hematoma and a laceration. He denies any prior syncopal episode. No preceding chest pain shortness of breath. He states he actually felt pretty good this morning. He notes a low-grade temperature of 99 degrees. He did a home COVID test which was negative. Estimated time of loss of consciousness is unknown though worries it may be upwards of 20 minutes. He believes he entered the bathroom around 510 and his alarm was going off at 530 but this is not definitive. [facility] Medical History Tinnitus Wears glasses Wears dentures Arthritis Back pain Migraine headache Vertigo Shortness of breath on exertion Former smoker Leg cramps MVP (mitral valve prolapse) Vasovagal syndrome Contusion of right ankle Asthma Home Medications ?Medication ?Instructions ?Recorded ?Last Taken ?Type meloxicam 15 mg tablet 15 mg PO DAILY 03/26/23 Unknown History oxycodone 5 mg tablet 5 mg PO Q6H PRN pain 4 days #16 03/27/23 Unknown Rx tabs oxycodone-acetaminophen 5 mg-325 1 tab PO Q6H PRN pain 5 days #20 04/01/23 Unknown Rx mg tablet (Percocet) tabs Allergy/AdvReac Type Severity Reaction Status Date / Time Penicillins AdvReac Unknown PT UNSURE Verified 09/15/25 10:06 OF REACTION aspirin (ASA) AdvReac Bleeding Verified 09/15/25 10:06 Surgical History Hx of wisdom tooth extraction Hx of tonsillectomy Social History Smoking Status: Former smoker alcohol intake: never ROS ROS ED Constitutional Constitutional ED: Denies chills, fever(s) or weight loss Eyes Eyes: Denies change in vision or diplopia ENT ENT ED: Reports rhinorrhea; Denies ear pain or sore throat Cardiovascular Cardiovascular: Reports other Details: Syncope ; Denies chest pain, orthopnea, palpitations or racing heartbeat Respiratory/Chest Respiratory/Chest: Reports cough; Denies dyspnea or orthopnea Gastrointestinal Gastrointestinal: Reports nausea; Denies abdominal pain, diarrhea or vomiting Genitourinary Genitourinary ED: Denies dysuria, hematuria or urinary frequency Musculoskeletal Musculoskeletal: Denies arthralgias or myalgias Integumentary Denies abscess or rash Neurologic Neurologic: Denies headache(s) or weakness Psychiatric Psychiatric: Denies anxiety, depression, suicidal ideation or suicidal thoughts Endocrine Endocrinology: Denies polydipsia, polyphagia or polyuria Allergic/Immunologic Allergic/Immunologic ED: Denies mouth swelling, tongue swelling or urticaria EXAM Physical Exam Const Vital Signs: 09/15/25 10:03 09/15/25 11:15 09/15/25 12:03 Temperature 99 F Temperature Source Oral Pulse Rate 99 77 Pulse Rate [Lying] 89 Pulse Rate [Sitting (for 1 minute prior to obtaining)] 80 Pulse Rate [Standing (for 1 minute prior to obtaining)] 88 Respiratory Rate 18 19 H Blood Pressure 142/86 H 126/82 H Blood Pressure [Lying] 141/85 H Blood Pressure [Sitting (for 1 minute prior to obtaining)] 117/76 Blood Pressure [Standing (for 1 minute prior to obtaining)] 128/70 H Blood Pressure Mean 104 96 Blood Pressure Mean [Lying] 103 Blood Pressure Mean [Sitting (for 1 minute prior to obtaining)] 89 Blood Pressure Mean [Standing (for 1 minute prior to obtaining)] 89 Pulse Ox 99 97 Oxygen Delivery Method Room Air Room Air 09/15/25 13:45 Temperature 97.8 F Temperature Source Pulse Rate 75 Pulse Rate [Lying] Pulse Rate [Sitting (for 1 minute prior to obtaining)] Pulse Rate [Standing (for 1 minute prior to obtaining)] Respiratory Rate 18 Blood Pressure 127/78 H Blood Pressure [Lying] Blood Pressure [Sitting (for 1 minute prior to obtaining)] Blood Pressure [Standing (for 1 minute prior to obtaining)] Blood Pressure Mean 94 Blood Pressure Mean [Lying] Blood Pressure Mean [Sitting (for 1 minute prior to obtaining)] Blood Pressure Mean [Standing (for 1 minute prior to obtaining)] Pulse Ox 98 Oxygen Delivery Method Positive well nourished and well developed General Appearance ED: well developed HEENT Reports normocephalic, head/scalp atraumatic and moist mucous membranes HEENT Narrative: 1.5 cm linear laceration to the mid forehead. The wound edges are well-approximated. There is no active bleeding. No palpable bony depression. Eyes PERRL and EOMs intact bilaterally Neck no lymphadenopathy, supple and no JVD General: Negative for tenderness Resp normal respiratory effort and clear to auscultation bilaterally Cardio regular rate, regular rhythm and no murmurs GI normal to inspection, nondistended, normoactive bowel sounds and non-tender Palpation: soft Back/Spine no CVA tenderness and normal ROM Extremity normal to inspection General Extremety ED: Negative for edema General Extremity: Negative for edema Neuro oriented x3, CN's II-XII intact bilaterally and no sensory deficits noted Neuro Narrative: GCS of 15 Sensorium / Orientation: alert Motor Exam: strength 5/5 throughout Psych mental status grossly normal Mood & Affect: Negative for depressed or tearful Skin no rashes or lesions noted and no wounds Skin Narrative: Forehead laceration MDM MDM MDM Narrative Medical decision making narrative: Differential diagnosis includes but not limited to vasovagal syncope dehydration pneumonia cardiogenic syncope electrolyte abnormalities viral syndrome intracranial hemorrhage skull fracture laceration EKG demonstrates a normal sinus rhythm with a ventricular rate of 85 bpm. White count of 7.1 with a hemoglobin of 15 platelet count is 212. 2 sets of cardiac enzymes are 11 and less than 6. My depend interpretation of the chest x-ray is no acute process. Normal electrolytes. The patient was observed on the monitor. He has a occasional PVC but has been in normal sinus rhythm. He has been able to ambulate to the bathroom and back. The forehead laceration was repaired after cleansing the wound with Shur-Clens sterile saline. A small amount of Dermabond was used to close. CT of the brain shows no intracranial hemorrhage or skull fracture. Clinically I believe this is most likely a viral illness with vasovagal syncope. History & Record Review Discussion w/independent historian: Patient Lab Data Attestation: I reviewed the patient's lab results. Labs: Laboratory Results - last 24 hr 09/15/25 09/15/25 10:55 12:50 WBC 7.1 RBC 5.24 Hgb 15.0 Hct 45.0 MCV 85.9 MCH 28.6 MCHC 33.3 RDW Std Deviation 42.1 RDW Coeff of Martina 13.4 Plt Count 212 MPV 9.1 Immature Gran % (Auto) 0.300 Neut % (Auto) 69.4 Lymph % (Auto) 13.6 L [place] % (Auto) 15.4 H Eos % (Auto) 0.3 Baso % (Auto) 1.0 Absolute Neuts (auto) 4.9 Absolute Lymphs (auto) 0.96 Nucleated RBC % 0 Sodium 140 Potassium 3.9 Chloride 105 Carbon Dioxide 26.4 Anion Gap 8 BUN 9 Creatinine 0.84 Estim Creat Clear Calc 124.66 Est GFR (MDRD) Non-Af 105 BUN/Creatinine Ratio 10.2 Glucose 114 H Calcium 8.8 Troponin T High Sens 11 Troponin T Hi Sens 2 Hr < 6 Radiography Diagnostic Testing: Clinical Impression(s) from Imaging Studies Chest X-Ray 09/15/25 10:31 IMPRESSION: No acute cardiopulmonary process. Reading Location: [facility] Brain CT 09/15/25 11:30 IMPRESSION: No acute intracranial hemorrhage, midline shift or mass effect. If symptoms persist, further evaluation with MRI is recommended. Reading [facility] EKG Initial EKG: Attestation: I personally reviewed and interpreted this EKG as follows: Comments: Normal sinus rhythm ventricular rate of 85 bpm Discharge Plan Triage Chief Complaint: Syncope ED Provider: Brayan Contreras Dx/Rx/DC Orders Clinical Impression: Acute viral syndrome, Vasovagal syncope, Forehead laceration Instructions: ED Laceration, Face: Skin Glue, ED Fainting, Vagal Reaction, ED Viral Syndrome (Adult) Prescriptions: No Action meloxicam 15 mg tablet 15 mg PO DAILY Patient Comments: TAKE 1 TABLET BY MOUTH DAILY FOR 14 DAYS oxycodone 5 mg tablet 5 mg PO Q6H PRN (Reason: pain) 4 Days Qty: 16 0RF oxycodone-acetaminophen [Percocet] 5-325 mg tablet 1 tab PO Q6H PRN (Reason: pain) 5 Days Qty: 20 0RF Primary Care Provider: Roopa Wilkes Referrals: Roopa Wilkes MD [Primary Care Provider, Family Practice] - As Needed Print Language: Indonesian Disposition Disposition: Home, Self Care Discharge Date/Time: 09/15/25 13:47
[2025-09-15 11:05] LABS: Hematocrit 45.0 % (40-54); Hemoglobin 15.0 g/dL (13.0-16.5); Immature Granulocytes Count 0.020 X10^3/uL (0.0-0.0); Mean Corp Hgb Conc 33.3 g/dL (32-36); Mean Corpuscular Volume 85.9 fL (80-94); Mean Platelet Vol. 9.1 fl (6.2-12.0); NRBC Flagged by Analyzer 0 % (0-5); Platelet Count 212 K/mm3 (150-450); RBC Distribution Width CV 13.4 % (11.6-14.6); RBC Distribution Width SD 42.1 fl (35.1-43.9); Red Blood Count 5.24 M/mm3 (4.6-6.2); White Blood Count 7.1 K/mm3 (4.4-11.0)
[2025-09-15 11:15] VITALS: BP 117/76; BP 128/70; BP 141/85; PULSE 80; PULSE 88; PULSE 89
[2025-09-15] MEDS: 0.9% Normal Saline (1000mL) 1,000 ML 1000 ML IV (11:17)
[2025-09-15 11:28] LABS: Anion Gap 8 (5-15); BUN 9 mg/dL (4-19); BUN/Creat Ratio 10.2 RATIO (10-20); Calcium,Total 8.8 mg/dL (7.6-11.0); Carbon Dioxide 26.4 mmol/L (21.0-32.0); Chloride 105 mmol/L (98-108); Estimated Creatinine Clearance 124.66 ml/min (50-250); Glucose 114 mg/dL (70-99); Potassium 3.9 mmol/L (3.3-5.1); Troponin T High Sensitivity 11 ng/L (<=22)
--- NOTE | 2025-09-15 11:30 | CT_ITS ---
EXAM: CT Head Without Intravenous Contrast CLINICAL INDICATION: HEAD INJURY TECHNIQUE: Axial computed tomography images of the head/brain without intravenous contrast. This CT exam was performed using one or more of the following dose reduction techniques: automated exposure control, adjustment of the mA and/or kV according to patient size, and/or use of iterative reconstruction technique. RADIATION DOSE: CTDIvol = 44.9 mGy, DLP = 762.4 mGy-cm COMPARISON: No relevant prior studies available. FINDINGS: BRAIN AND EXTRA-AXIAL SPACES: No acute intracranial hemorrhage, midline shift or mass effect. If symptoms persist, further evaluation with MRI is recommended. No significant white matter disease. BONES/JOINTS: Unremarkable. No acute fracture. SOFT TISSUES: Unremarkable. SINUSES: Mucosal thickening of the maxillary sinuses, bilaterally. MASTOID AIR CELLS: Unremarkable as visualized. No mastoid effusion. CT/Brain/Head without Contrast IMPRESSION: No acute intracranial hemorrhage, midline shift or mass effect. If symptoms per sist, further evaluation with MRI is recommended. Reading Location: [facility]
[2025-09-15 12:03] VITALS: BP 126/82; PULSE 77; RESP 19; O2SAT 97
[2025-09-15 13:30] LABS: Troponin T High Sens 2 HR < 6 ng/L (<=22)
[2025-09-15 13:45] VITALS: BP 127/78; PULSE 75; RESP 18; TEMP 36.6; O2SAT 98
== END 2025-09-15 13:47 | disposition home or self-care (01) ==
PROVIDERS: Emergency Provider Emergency Medicine; PCP Family Medicine; Visit Provider Emergency Medicine
DX: S01.81XA Laceration without foreign body of other part of head, initial encounter (principal); R55 Syncope and collapse; Z87.891 Personal history of nicotine dependence; B34.9 Viral infection, unspecified; R05.9 Cough, unspecified; W01.10XA Fall on same level from slipping, tripping and stumbling with subsequent striking against unspecified object, initial encounter
CPT/HCPCS: 12011; 70450; 71045; 80048; 84484; 85025; 93005; 96360; 96361; 99285

== ENCOUNTER → 2025-09-17 | Outpatient (CLI) | payer BC, SELFPAY ==
--- OUTSIDE RECORDS SUMMARY | 2025-09-17 09:46 | XMS RPT_ITS | CCD ---
Author Organization [facility] Inform ion [facility] Care Team Providers Care [address] Reporter Name Role Phone ADEEL FISHER Unavailable Unavailable Anders BARRY Unavailable Unavailable SHERMAN RIVAS Unavailable Unavailable Andres BARRY Unavailable Unavailable Andres BARRY Unavailable Unavailable Andres BARRY Unavailable Unavailable Seth Harris Unavailable Unavailable Unavailable Primary Care Provider Unavailkirstin e MD MINA BARRY Primary Care Provider [phone] MD MINA BARRY Referring Provider GUILLERMO Hernández Attending Provider GUILLERMO Weston Attending Provider Dr. Pj Negro Attending Provider Dr. Pj Negro Referring Provider Dr. Pj Negro Other Provider Massimo Rodrigues DO Primary Care Provider Jorge Barry MD Primary Care Provider Bryant, Yunior Chi Primary Care Unavailable Bryant, Yunior Chi Referring Unavailable Bryant, Yunior Chi Attending Unavailable Wilkes, Roopa Referring Unavailable Wilkes, Roopa Attending Unavailable Wilkes, Roopa Primary Care Unavailable Allergies Allergy Classification Reported Allergen(s) Allergy Type Date of Onset Reaction(s) Facility (5 sources) Aspirin Drug Allergy 2 Intolerance, Other (See Comments) [facility] (3 sources) Penicillins Propensity to adverse reactions 3 [address] UNSURE OF REACTION [facility] (1 source) Penicillins Propensity to adverse reactions to drug 3 Unknown [facility] (1 source) Aspirin Drug Allergy [address] [facility] (1 source) Penicillins Drug allergy (disorder) 3 [facility] Medications Current Medications Medication Drug Class(es) Dates Sig (Normalized) Sig (Original) acetaminophen 325 mg / HYDROcodone bitartrate 5 mg oral tablet (1 source) Opioid Agonist Start: 03-26-2023 take 1 tablet by mouth every four hours as needed Hydrocodone-Acet aminophen Active 1 TABLET PO EVERY 4 HOURS NEEDED 10 2 March 26, 2023 acetaminophen 325 mg / oxyCODONE hydrochloride 5 mg oral tablet (1 source) Opioid Agonist Start: 04-01-2023 take 1 tablet by mouth every six hours Oxycodone-Acetam inophen (Percocet) 5-325 mg tablet Active 1 TABLET PO EVERY 6 HOURS 20 5 April 01, 2023 meloxicam 15 mg oral tablet (2 sources) Nonsteroidal Anti-inflammatory Drug Start: 03-26-2023 take 15 mg by mouth once daily Meloxicam Active 15 MG PO DAILY March 26, 2023 12:00am oxyCODONE hydrochloride 5 mg oral tablet (1 source) Opioid Agonist Start: 03-27-2023 take 5 mg by mouth every six hours Oxycodone Active 5 MG PO EVERY 6 HOURS 16 4 March 27, 2023 Completed/Discontinued Medications Medication Drug Class(es) Dates Sig (Normalized) Sig (Original) Albuterol (1 source) beta2-Adrenergic Agonist ALBUTEROL INHALATION Inhale as instructed. 0 Active Comment on above: Inhale as instructed . Problems Active Problems Problem Classification Problem Date Documented Da te Episodic/Chronic Abdominal hernia (3 sources) Umbilical hernia; Translations: [Umbilical hernia without obstruction or gangrene] 03-26-2023 Episodic Conditions associated with dizziness or vertigo (2 sources) Vertigo; Translations: [Dizziness and giddiness] 06-10-2023 Episodic Immunizations and screening for infectious disease (1 source) Encounter for screening for other viral diseases; Translations: [Encounter for screening for other viral diseases] Onset: 04-07-2025 Episodic Other ear and sense organ disorders (2 sources) Subjective tinnitus; Translations: [Tinnitus, unspecified ear] 06-10-2023 Episodic Other ear and sense organ disorders (1 source) Bilateral hearing loss of ears caused by noise; Translations: [Noise effects on inner ear, bilateral] 07-16-2023 Episodic Other nutritional; endocrine; and metabolic disorders (1 source) Body mass index (BMI) 34.0-34.9, adult; Translations: [Body mass index [BMI] 34.0-34.9, adult] Onset: 04-07-2025 Chronic Other screening for suspected conditions (not mental disorders or infectious disease) (1 source) Encounter for screening for lipoid disorders; Translations: [Encounter for screening for lipoid disorders] Onset: 04-07-2025 Episodic Other upper respiratory infections (1 source) Pharyngitis; Translations: [Acute pharyngitis, unspecified] Episodic Superficial injury; contusion (4 sources) Contusion of right ankle; Translations: [Contusion of right ankle, initial encounter] 02-12-2023 Episodic Syncope (4 sources) Vasovagal syncope; Translations: [Syncope and collapse] 02-12-2023 Episodic Unclassified (1 source) Unknown / UNK(Unknown) Onset: 11-17-2017 Unclassified (1 source) Obesity, class 1; Translations: [Obesity, class 1] Onset: 04-07-2025 Viral infection (1 source) Viral disease; Translations: [Viral infection, unspecified] Episodic Past or Other Problems Problem Classification Problem Date Documented Da te Episodic/Chronic Other gastrointestinal disorders (2 sources) Change in bowel habit; Translations: [Change in bowel habit] Onset: 10-16-2017 Episodic Unclassified (1 source) RIGHT HAND PAIN,SWELLING,R FAIZAN Onset: 11-17-2017 Results Test Name Value Interpretation Reference Range Facility L3410.9999on 10-23-2024 [facility] [place], [place]. COMMENT Normal . [facility] Comment on above: Order Comment: [id number] HEP C SCREENING EDTA PLASMA RF Result Comment: Test Ordered: [id number] HCV Antibody RFX to Quant PCR HCV Ab Note: CB Non Reactive Reference Range: Non Reactive Interpretation: Comment CB Reference Range: . Not infected with HCV unless early or acute infection is suspected (which may be delayed in an immunocompromised individual), or other evidence exists to indicate HCV infection. Performed at: - [facility] [address] [id number] Automation Qa Tester: Leon Perez PhD, Phone: [phone] Performed By: #### L 500.4100, L100.0500, L3410.9999, L500.4050 #### [facility] [address] [place], [address] CBC-Complete Blood Cnt No Di ffon 10-22-2024 Erythrocyte distribution width (RBC) [Ratio] 13.2 % Normal 11.6-14.6 [facility] Comment on above: Performed By: #### L 500.4100, L100.0500, L3410.9999, L500.4050 #### [facility] [address] [place], [address] Hematocrit (Bld) [Volume fraction] 46.4 % Normal 40-54 [facility] Comment on above: Performed By: #### L 500.4100, L100.0500, L3410.9999, L500.4050 #### [facility] [address] [place], [address] Hemoglobin (Bld) [Mass/Vol] 15.4 g/dL Normal 13.0-16.5 [facility] Comment on above: Performed By: #### L 500.4100, L100.0500, L3410.9999, L500.4050 #### [facility] [address] [place], [address] MCH (RBC) [Entitic mass] 28.4 pg Normal 27.0-32.0 [facility] Comment on above: Performed By: #### L 500.4100, L100.0500, L3410.9999, L500.4050 #### [facility] [address] [place], [address] MCHC (RBC) [Mass/Vol] 33.2 g/dL Normal 32-36 [facility] Comment on above: Performed By: #### L 500.4100, L100.0500, L3410.9999, L500.4050 #### [facility] [address] [place], [address] MCV (RBC) [Entitic vol] 85.5 fL Normal 80-94 [facility] Comment on above: Performed By: #### L 500.4100, L100.0500, L3410.9999, L500.4050 #### [facility] [address] [place], [address] Platelet mean volume (Bld) [Entitic vol] 9.5 fL Normal 6.2-12.0 [facility] Comment on above: Performed By: #### L 500.4100, L100.0500, L3410.9999, L500.4050 #### [facility] [address] [place], [address] Platelets (Bld) [#/Vol] 264 10*3/uL Normal 150-450 [facility] Comment on above: Performed By: #### L 500.4100, L100.0500, L3410.9999, L500.4050 #### [facility] [address] [place], [address] RBC (Bld) [#/Vol] 5.43 10*6/uL Normal 4.6-6.2 [facility] Comment on above: Performed By: #### L 500.4100, L100.0500, L3410.9999, L500.4050 #### [facility] [address] [place], [address] RDW SD 40.7 fl Normal 35.1-43.9 [facility] Comment on above: Performed By: #### L 500.4100, L100.0500, L3410.9999, L500.4050 #### [facility] [address] [place], [address] WBC (Bld) [#/Vol] 6.1 10*3/uL Normal 4.4-11.0 [facility] Comment on above: Performed By: #### L 500.4100, L100.0500, L3410.9999, L500.4050 #### [facility] [address] [place], [address] Comprehensive Metabolic Prof ilon 10-22-2024 Albumin [Mass/Vol] 3.5 g/dL Normal 3.2-5.0 [facility] Comment on above: Performed By: #### L 500.4100, L100.0500, L3410.9999, L500.4050 #### [facility] [address] [place], [address] Albumin/Globulin [Mass ratio] 1.0 {ratio} Normal 0.9-2.4 [facility] Comment on above: Performed By: #### L 500.4100, L100.0500, L3410.9999, L500.4050 #### [facility] [address] [place], [address] ALK P 96 U/L Normal 45-117 [facility] Comment on above: Performed By: #### L 500.4100, L100.0500, L3410.9999, L500.4050 #### [facility] [address] [place], [address] ALT [Catalytic activity/Vol] 40 U/L Normal 16-61 [facility] Comment on above: Performed By: #### L 500.4100, L100.0500, L3410.9999, L500.4050 #### [facility] [address] [place], [address] AST [Catalytic activity/Vol] 25 U/L Normal 15-37 [facility] Comment on above: Performed By: #### L 500.4100, L100.0500, L3410.9999, L500.4050 #### [facility] [address] [place], [address] Bilirubin [Mass/Vol] 0.80 mg/dL Normal 0.20-1.00 [facility] Comment on above: Result Comment: For patients on eltrombopag therapy, use of Dimension [place] TBIL is not recommended. Performed By: #### L 500.4100, L100.0500, L3410.9999, L500.4050 #### [facility] [address] [place], [address] BUN/CRE 11.0 RATIO Normal 10-20 [facility] Comment on above: Performed By: #### L 500.4100, L100.0500, L3410.9999, L500.4050 #### [facility] [address] [place], [address] CA,Total 8.7 mg/dL Normal 8.5-10.1 [facility] Comment on above: Performed By: #### L 500.4100, L100.0500, L3410.9999, L500.4050 #### [facility] [address] [place], [address] Chloride [Moles/Vol] 109 mmol/L High 98-107 [facility] Comment on above: Performed By: #### L 500.4100, L100.0500, L3410.9999, L500.4050 #### [facility] [address] [place], [address] CO2 [Moles/Vol] 29.0 mmol/L Normal 21.0-32.0 [facility] Comment on above: Performed By: #### L 500.4100, L100.0500, L3410.9999, L500.4050 #### [facility] [address] [place], [address] Creatinine [Mass/Vol] 0.82 mg/dL Normal 0.70-1.30 [facility] Comment on above: Result Comment: The validity of the calculated GFR GFRAA in patients over 70 years has not been determined. Clinical correlation is essential. Performed By: #### L 500.4100, L100.0500, L3410.9999, L500.4050 #### [facility] [address] [place], [address] EST GFR - AA 127 mL/min Normal >60 [facility] Comment on above: Result Comment: Afri can [place] GFR Calc Performed By: #### L 500.4100, L100.0500, L3410.9999, L500.4050 #### [facility] [address] [place], [address] GAP 3 Low 5-15 [facility] Comment on above: Performed By: #### L 500.4100, L100.0500, L3410.9999, L500.4050 #### [facility] [address] [place], [address] GFR/1.73 sq M.predicted among non-blacks MDRD (S/P/Bld) [Vol rate/Area] 105 mL/min/{1.73_m2} Normal >60 [facility] Comment on above: Result Comment: Non- GFR Calc Performed By: #### L 500.4100, L100.0500, L3410.9999, L500.4050 #### [facility] [address] [place], [address] Globulin (S) [Mass/Vol] 3.6 g/dL Normal 2.2-4.2 [facility] Comment on above: Performed By: #### L 500.4100, L100.0500, L3410.9999, L500.4050 #### [facility] [address] [place], [address] Glucose [Mass/Vol] 101 mg/dL Normal 74-106 [facility] Comment on above: Result Comment: Fast ing Glucose result from 100 to 125 mg/dL suggests IMPAIRED HOMEOSTASIS per A.D.A. criteria. Performed By: #### L 500.4100, L100.0500, L3410.9999, L500.4050 #### [facility] [address] [place], [address] Potassium [Moles/Vol] 4.3 mmol/L Normal 3.5-5.1 [facility] Comment on above: Performed By: #### L 500.4100, L100.0500, L3410.9999, L500.4050 #### [facility] [address] [place], [address] Sodium [Moles/Vol] 140 mmol/L Normal 136-145 [facility] Comment on above: Performed By: #### L 500.4100, L100.0500, L3410.9999, L500.4050 #### [facility] [address] [place], [address] T PROT 7.1 g/dL Normal 6.4-8.2 [facility] Comment on above: Performed By: #### L 500.4100, L100.0500, L3410.9999, L500.4050 #### [facility] [address] [place], [address] Urea nitrogen [Mass/Vol] 9 mg/dL Normal 7-18 [facility] Comment on above: Performed By: #### L 500.4100, L100.0500, L3410.9999, L500.4050 #### [facility] [address] [place], [address] Lipid Profileon 10-22-2024 Cholesterol [Mass/Vol] 178 mg/dL Normal 200 [facility] Comment on above: Result Comment: <200 mg/dL Desirable 200-240 mg/dL Borderline >240 mg/dL High Risk Performed By: #### L 500.4100, L100.0500, L3410.9999, L500.4050 #### [facility] [address] [place], [address] Cholesterol in HDL [Mass/Vol] 44 mg/dL Normal [facility] Comment on above: Result Comment: The drugs N-Acetylcysteine and Metamizole may falsely depress this assay. Reference Range HDL <40 mg/dL Low HDL Cholesterol HDL >or= 60 mg/dL High HDL Cholesterol Performed By: #### L 500.4100, L100.0500, L3410.9999, L500.4050 #### [facility] [address] [place], [address] Cholesterol in LDL [Mass/Vol] 111 mg/dL Normal 0-130 [facility] Comment on above: Performed By: #### L 500.4100, L100.0500, L3410.9999, L500.4050 #### [facility] [address] [place], [address] Cholesterol in VLDL [Mass/Vol] 23 mg/dL Normal 5-40 [facility] Comment on above: Performed By: #### L 500.4100, L100.0500, L3410.9999, L500.4050 #### [facility] [address] [place], [address] Triglyceride [Mass/Vol] 117 mg/dL Normal [facility] Comment on above: Result Comment: The drugs N-Acetylcysteine and Metamizole may falsely depress this assay. Serum Triglycerides Reference Interval Normal <150 mg/dL Borderline high 150 - 199 mg/dL High 200 - 499 mg/dL Very High > or = 500 mg/dL Performed By: #### L 500.4100, L100.0500, L3410.9999, L500.4050 #### [facility] [address] [place], [address] Absolute lymphocyte countOrd ered By: Dr. Nazario on 03-26-2023 Lymphocytes Auto (Unsp spec) [#/Vol] 2.51 10*3/uL 0.83-4.51 [facility] Basophil percentageOrdered B y: Dr. Nazario on 03-26-2023 Basophil percentage 0 SEEN /hpf 0-5 [facility] Lactate [Moles/Vol] 1.4 mmol/L 0.4-2.0 [facility] Basophils/100 WBC (Bld) 1.1 % 0-1 [facility] Chloride [Moles/Vol] 110 mmol/L 98-107 [facility] Eosinophils/100 WBC (Bld) 3.3 % 0-5 [facility] Glucose [Mass/Vol] 121 mg/dL 74-106 [facility] Comment on above: Fasting Glucose resu lt from 100 to 125 mg/dL suggests IMPAIRED HOMEOSTASIS per A.D.A. criteria. Neutrophils (Bld) [#/Vol] 6.6 10*3/uL 2.0-7.7 [facility] Neutrophils/100 WBC (Bld) 63.1 % 47-70 [facility] Potassium [Moles/Vol] 3.9 mmol/L 3.5-5.1 [facility] Sodium [Moles/Vol] 143 mmol/L 136-145 [facility] WBC (Bld) [#/Vol] 10.4 10*3/uL 4.4-11.0 [facility] Bilirubin Test strip Ql (U)O rdered By: Dr. Nazario on 03-26-2023 Bilirubin Ql (U) Negative Negative [facility] Blood erythrocytes count (nu mber/volume)Ordered By: Dr. Nazario on 03-26-2023 RBC (Bld) [#/Vol] 5.54 10*6/uL 4.6-6.2 [facility] Blood hemoglobin measurement (mass/volume)Ordered By: Dr. Nazario on 03-26-2023 Hemoglobin (Bld) [Mass/Vol] 15.8 g/dL 13.0-16.5 [facility] Blood lymphocytes/100 leukoc ytesOrdered By: Dr. Nazario on 03-26-2023 Lymphocytes/100 WBC (Bld) 24.1 % 19-41 [facility] Blood monocytes/100 leukocyt esOrdered By: Dr. Nazario on 03-26-2023 Monocytes/100 WBC (Bld) 8.0 % 0-10 [facility] Blood platelet mean volumeOr dered By: Dr. Nazraio on 03-26-2023 Platelet mean volume (Bld) [Entitic vol] 9.1 fL 6.2-12.0 [facility] Determination of erythrocyte mean corpuscular volume (MCV)Ordered By: Dr. Nazario on 03-26-2023 MCV (RBC) [Entitic vol] 85.0 fL 80-94 [facility] Hematocrit Auto (Bld) [Volum e fraction]Ordered By: Dr. aNzario on 03-26-2023 Hematocrit (Bld) [Volume fraction] 47.1 % 40-54 [facility] Ketones Test strip Ql (U)Ord ered By: Dr. Nazario on 03-26-2023 Ketones Ql (U) Negative Negative [facility] Laboratory - Chemistry and C hemistry - challengeOrdered By: Dr. Nazario on 03-26-2023 CO2 [Moles/Vol] 27.0 mmol/L 21.0-32.0 [facility] Urea nitrogen/Creatinine [Mass ratio] 19.8 mg/mg 10-20 [facility] - Hematology and Cell countsOrdered By: Dr. Nazario on 03-26-2023 Erythrocyte distribution width (RBC) [Entitic vol] 41.0 fL 35.1-43.9 [facility] Erythrocyte distribution width (RBC) [Ratio] 13.2 % 11.6-14.6 [facility] Immature granulocytes/100 WBC (Bld) 0.400 % 0.0-0.9 [facility] Comment on above: IG% - Immature Granu locytes (promyelocytes, myelocytes and metamyelocytes) > 1% indicates that a LEFT SHIFT is Present. MCH (RBC) [Entitic mass] 28.5 pg 27.0-32.0 [facility] Nucleated RBC/100 WBC (Bld) [Ratio] 0 % 0-5 [facility] MCHC Auto (RBC) [Mass/Vol]Or dered By: Dr. Nazario on 03-26-2023 MCHC (RBC) [Mass/Vol] 33.5 g/dL 32-36 [facility] Mucus LM Ql (Urine sed)Order ed By: Dr. Nazario on 03-26-2023 Mucus Ql (Urine sed) 0 SEEN /hpf [facility] Nitrite Test strip Ql (U)Ord ered By: Dr. Nazario on 03-26-2023 Nitrite Ql (U) Negative Negative [facility] No Panel InformationOrdered By: Dr. Nazario on 03-26-2023 Estimated Creatinine Clearance Calc 88.47 ml/min [facility] Estimated GFR (MDRD) Amer 101 mL/min >60 [facility] Comment on above: GFR Calc Estimated GFR (MDRD) Non-Af Amer 83 mL/min >60 [facility] Comment on above: Non- GFR Calc Platelets bldOrdered By: Dr. Nazario on 03-26-2023 Platelets (Bld) [#/Vol] 288 10*3/uL 150-450 [facility] Protein Test strip Ql (U)Ord ered By: Dr. Nazario on 03-26-2023 Protein Ql (U) 15 mg/dl Negative [facility] Serum or plasma calcium natty urement (mass/volume)Ordered By: Dr. Nazario on 03-26-2023 Calcium [Mass/Vol] 9.9 mg/dL 8.5-10.1 [facility] Serum or plasma creatinine m easurement (mass/volume)Ordered By: Dr. Nazario on 03-26-2023 Creatinine [Mass/Vol] 1.01 mg/dL 0.70-1.30 [facility] Comment on above: The validity of the calculated GFR & GFRAA in patients over 70 years has not been determined. Clinical correlation is essential. Serum or plasma urea nitroge n measurement (mass/volume)Ordered By: Dr. Nazario on 03-26-2023 Urea nitrogen [Mass/Vol] 20 mg/dL 7-18 [facility] Squamous epithelial cells de tection in urine sediment by light microscopyOrdered By: Dr. Nazario on 03-26-2023 Epithelial cells.squamous LM Ql (Urine sed) 0 SEEN /hpf 0-5 [facility] Thin prep Papanicolaou smear with manual screeningOrdered By: Dr. Nazario on 03-26-2023 Thin prep Papanicolaou smear with manual screening 6 5-15 [facility] Urine blood detectionOrdered By: Dr. Nazario on 03-26-2023 RBC Ql (U) 25 /ul Negative [facility] RBC Ql (U) 0-5 SEEN /hpf 0-5 [facility] Urine clarityOrdered By: Dr. Nazario on 03-26-2023 Clarity (U) Clear Clear [facility] Urine color determinationOrd ered By: Dr. Nazario on 03-26-2023 Color (U) Yellow Yellow [facility] Urine glucose detectionOrder ed By: Dr. Nazario on 03-26-2023 Glucose Ql (U) Normal mg/dl Normal [facility] Urine leukocyte esterase det ection by dipstickOrdered By: Dr. Nazario on 03-26-2023 Leukocyte esterase Test strip Ql (U) Negative Negative [facility] Urine pHOrdered By: Dr. Cristobal longoria on 03-26-2023 pH (U) 6.0 [pH] 5.0 - 8.0 [facility] Urine sediment bacteria coun t by microscopy (number/high power field)Ordered By: Dr. Nazario on 03-26-2023 Bacteria LM.HPF (Urine sed) [#/Area] 0 /[HPF] None Seen [facility] Urine specific gravity measu rementOrdered By: Dr. Nazario on 03-26-2023 Specific gravity (U) [Rel density] 1.025 1.002-1.[address] [facility] Urobilinogen Auto test strip Ql (U)Ordered By: Dr. Nazario on 03-26-2023 Urobilinogen Ql (U) Normal mg/dl Normal [facility] Absolute lymphocyte countOrd ered By: Dr. Webb on 02-11-2023 Lymphocytes Auto (Unsp spec) [#/Vol] 3.02 10*3/uL 0.83-4.51 [facility] Basophil percentageOrdered B y: Dr. Webb on 02-11-2023 Basophils/100 WBC (Bld) 1.0 % 0-1 [facility] Chloride [Moles/Vol] 105 mmol/L 98-107 [facility] Eosinophils/100 WBC (Bld) 3.6 % 0-5 [facility] Glucose [Mass/Vol] 108 mg/dL 74-106 [facility] Comment on above: Fasting Glucose resu lt from 100 to 125 mg/dL suggests IMPAIRED HOMEOSTASIS per A.D.A. criteria. Neutrophils (Bld) [#/Vol] 4.2 10*3/uL 2.0-7.7 [facility] Neutrophils/100 WBC (Bld) 49.7 % 47-70 [facility] Potassium [Moles/Vol] 3.1 mmol/L 3.5-5.1 [facility] Sodium [Moles/Vol] 139 mmol/L 136-145 [facility] WBC (Bld) [#/Vol] 8.4 10*3/uL 4.4-11.0 [facility] Blood erythrocytes count (nu mber/volume)Ordered By: Dr. Webb on 02-11-2023 RBC (Bld) [#/Vol] 5.53 10*6/uL 4.6-6.2 [facility] Blood hemoglobin measurement (mass/volume)Ordered By: Dr. Webb on 02-11-2023 Hemoglobin (Bld) [Mass/Vol] 15.6 g/dL 13.0-16.5 [facility] Blood lymphocytes/100 leukoc ytesOrdered By: Dr. Webb on 02-11-2023 Lymphocytes/100 WBC (Bld) 36.0 % 19-41 [facility] Blood monocytes/100 leukocyt esOrdered By: Dr. Webb on 02-11-2023 Monocytes/100 WBC (Bld) 9.5 % 0-10 [facility] Blood platelet mean volumeOr dered By: Dr. Webb on 02-11-2023 Platelet mean volume (Bld) [Entitic vol] 9.5 fL 6.2-12.0 [facility] Determination of erythrocyte mean corpuscular volume (MCV)Ordered By: Dr. Webb on 02-11-2023 MCV (RBC) [Entitic vol] 84.1 fL 80-94 [facility] Hematocrit Auto (Bld) [Volum e fraction]Ordered By: Dr. Webb on 02-11-2023 Hematocrit (Bld) [Volume fraction] 46.5 % 40-54 [facility] Laboratory - Chemistry and C hemistry - challengeOrdered By: Dr. Webb on 02-11-2023 CO2 [Moles/Vol] 25.0 mmol/L 21.0-32.0 [facility] Urea nitrogen/Creatinine [Mass ratio] 18.2 mg/mg 10-20 [facility] Laboratory - Hematology and Cell countsOrdered By: Dr. Webb on 02-11-2023 Erythrocyte distribution width (RBC) [Entitic vol] 38.8 fL 35.1-43.9 [facility] Erythrocyte distribution width (RBC) [Ratio] 12.8 % 11.6-14.6 [facility] Immature granulocytes/100 WBC (Bld) 0.200 % 0.0-0.9 [facility] Comment on above: IG% - Immature Granu locytes (promyelocytes, myelocytes and metamyelocytes) > 1% indicates that a LEFT SHIFT is Present. MCH (RBC) [Entitic mass] 28.2 pg 27.0-32.0 [facility] Nucleated RBC/100 WBC (Bld) [Ratio] 0 % 0-5 [facility] MCHC Auto (RBC) [Mass/Vol]Or dered By: Dr. Webb on 02-11-2023 MCHC (RBC) [Mass/Vol] 33.5 g/dL 32-36 [facility] No Panel InformationOrdered By: Dr. Webb on 02-11-2023 Troponin I High Sensitivity 4 pg/mL 3.0-78.0 [facility] Comment on above: Please Note: New Jacque t Units and Gender Specific Reference Ranges. For more information see Policy Stat Procedure [place] High Sensitivity Troponin (TNIH) and attachments. Estimated Creatinine Clearance Calc 98.24 ml/min [facility] Estimated GFR (MDRD) Amer 118 mL/min >60 [facility] Comment on above: GFR Calc Estimated GFR (MDRD) Non-Af Amer 98 mL/min >60 [facility] Comment on above: Non- GFR Calc Platelets bldOrdered By: Dr. Webb on 02-11-2023 Platelets (Bld) [#/Vol] 273 10*3/uL 150-450 [facility] Serum or plasma calcium natty urement (mass/volume)Ordered By: Dr. Webb on 02-11-2023 Calcium [Mass/Vol] 9.3 mg/dL 8.5-10.1 [facility] Serum or plasma creatinine m easurement (mass/volume)Ordered By: Dr. Webb on 02-11-2023 Creatinine [Mass/Vol] 0.88 mg/dL 0.70-1.30 [facility] Comment on above: The validity of the calculated GFR & GFRAA in patients over 70 years has not been determined. Clinical correlation is essential. Serum or plasma urea nitroge n measurement (mass/volume)Ordered By: Dr. Webb on 02-11-2023 Urea nitrogen [Mass/Vol] 16 mg/dL 7-18 [facility] Thin prep Papanicolaou smear with manual screeningOrdered By: Dr. Webb on 02-11-2023 Thin prep Papanicolaou smear with manual screening 9 5-15 [facility] CNOVon 07-28-2022 CNOV Office Visit (UCWSTR ) SERAFIN MULLINS JR ([id number]) 1975 M Date Time Provider Department 07/28/22 12:45 PM LIZBETH TINEO [facility] During your visit today, we recorded the following information about you: Temperature Pulse Respiration Blood pressure 102.5 degrees 119/minute 20/minute 152/92 Weight 111 kg Lizbeth Tineo APRN.AUTO MECHANIC SUPERVISOR 07/28/2022 1:56 PM Signed Subjective HPI Nontoxic-appearing male presents urgent care chief complaint sore throat body aches chills fever cough fatigue nasal congestion chest discomfort. Duration of symptoms 1 day. Associated symptoms listed above. Patient states was around nephew who did have strep throat. Denies any OTC medications today. Worst pain symptom is fatigue and body aches. Denies any productive cough nausea vomiting abdominal pain shortness of breath hemoptysis change in bowel or bladder habits. Past medical history prescription medication use allergies reviewed. .Patient presents with: Fever: ST, congestion, body aches x1 day History reviewed. No pertinent past medical history. History reviewed. No pertinent surgical history. ALLERGIES Aspirin MEDICATIONS ALBUTEROL INHALATION Inhale as instructed. History reviewed. No pertinent family history. Social History Tobacco Use Smoking status: Never Smokeless tobacco: Never BP 152/92 Pulse 119 Temp (!) 39.2 ?C (102.5 ?F) Resp 20 Wt 111 kg (244 lb 12.8 oz) SpO2 96% Review of Systems Constitutional: Positive for chills, fever and malaise/fatigue. HENT: Positive for congestion and sore throat. Negative for ear discharge, ear pain and sinus pain. Eyes: Negative for blurred vision, pain, discharge and redness. Respiratory: Positive for cough. Negative for hemoptysis, sputum production, shortness of breath, wheezing and stridor. Cardiovascular: Negative for chest pain. Gastrointestinal: Negative for abdominal pain, diarrhea, nausea and vomiting. Musculoskeletal: Positive for myalgias. Skin: Negative for itching and rash. Neurological: Positive for headaches. Negative for dizziness. Objective Physical Exam Constitutional: General: He is not in acute distress. Appearance: He is not diaphoretic. HENT: Head: Normocephalic. Nose: Congestion present. Mouth/Throat: Mouth: Mucous membranes are moist. Pharynx: Oropharynx is clear. No oropharyngeal exudate or posterior oropharyngeal erythema. Eyes: Conjunctiva/sclera: Conjunctivae normal. Pupils: Pupils are equal, round, and reactive to light. Cardiovascular: Rate and Rhythm: Normal rate and regular rhythm. Heart sounds: Normal heart sounds. Pulmonary: Effort: Pulmonary effort is normal. No tachypnea, accessory muscle usage or respiratory distress. Breath sounds: Normal breath sounds. No stridor. No wheezing, rhonchi or rales. Abdominal: Palpations: Abdomen is soft. Tenderness: There is no abdominal tenderness. There is no guarding or rebound. Musculoskeletal: Cervical back: Normal range of motion and neck supple. No rigidity or tenderness. Lymphadenopathy: Cervical: No cervical adenopathy. Skin: General: Skin is warm and dry. Neurological: Mental Status: He is alert and oriented to person, place, and time. ASSESSMENT/PLAN: 1. Pharyngitis, unspecified etiology - ICD9: 462, ICD10: J02.9 (primary diagnosis) - STREP A MOLECULAR (POC) - COVID WITH FLUA+B, ROUTINE 2. Viral illness - ICD9: 079.99, ICD10: B34.9 - COVID WITH FLUA+B, ROUTINE Strep test was negative. We will test for COVID-19 at this time. Red flags for prompt reevaluation discussed. Patient was educated on supportive therapies. Patient will follow up with primary care provider as needed. Patient was instructed to immediately proceed to emergency room for any new, worsening, or symptoms lasting longer than anticipated. The patient's clinical presentation is otherwise unremarkable at this time. Based on exam and clinical finding, the patient is stable for discharge. Plan of care was discussed with patient. Patient verbalizes understanding and agrees to plan of care. This note was generated using Bringrs software. It may contain errors in wording, punctuation, or spelling. Lizbeth Tineo APRN.TERESITA Tineo APRN.CNP 07/28/2022 1:14 PM Signed How to Manage Common Symptoms Associated with COVID for Adults Fever- Fever is a temperature over 100.4 F and can occur when the body is fighting an infection. To help treat a fever: Drink plenty of fluids and stay well hydrated. Eat small amounts of easy to digest food. Rest. Your body needs rest to recover, but getting up and moving around the house frequently is a good idea. You should try to continue doing your normal daily activities (bathing, toileting, grooming, cooking), though you will probably feel tired, and need to rest often. Avoid any heavy activity or e (more content not included)... Normal [facility] STREP A MOLECULAR (POC)on Procedural Control Valid [facility] Strep A (POCT) Negative Negative [facility] Stool Helicobacter pylori an tigen detection by immunoassayon 04-05-2022 H. pylori Ag IA Ql (Stl) Negative Negative 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 He has had dry skin, breaks in the skin, and howhis hand has just got progressively worse in the right hand.ALLERGIES:1. ASPIRIN.2. PENICILLIN.3. SULFA.MEDICATIONS: Currently on ibuprofen.REVIEW OF SYSTEMS: Denies any fever or chills. No other trauma.PAST MEDICAL HISTORY:1. Asthma.2. Pneumonia.SOCIAL HISTORY: Positive alcohol. No smoking.FAMILY HISTORY: Noncontributory.PHYSICAL EXAMINATION:Vital signs: Blood pressure 120/80, pulse 73, respiratory rate 14, temperature 98.4,pulse oximetry 99% on room air.Extremities: Right hand between the 4th and 5th webspace has just cracked skin andhas erythema in the 4th and 5th metacarpals. He has full range of motion at thewrist and the fingers. Overall, he looks well.DIAGNOSIS: Right hand cellulitis, contact dermatitis.PLAN: Clindamycin and Medrol Dosepak were prescribed. He should otherwise follow upas needed. ___MARILOU Hicks/[id number]: 11/17/2017 12:25DT: 11/18/2017 12:12SSI File#: [id number] #: [id number] [facility] PATIENT NAME: JOSESERAFIN D DA1961 [facility] REC #: [id number], [place] [address] STATCARE REPORT STATCARE PHYSICIANVerified/Reviewed by11/20/17 0810 MARIIA [facility] PATIENT NAME: SERAFIN MULLINS [id number] [facility] MEDICAL REC #: [id number], [place] [address] STATCARE REPORT STATCARE PHYSICIAN Normal [facility] [place] ENDOon 10-20-2017 TGT Ab (IGA) <20.0 Normal [facility] ([place]) Comment on above: Result Comment: Nathan mendosa 06/29/2007:Evaluation of Transglutaminase Ab (IgA) results: Negative: Less than 20 Weak positive: 20 to 30 Positive: Greater than 30Transglutaminase Ab is present in approximately 95% to 100%of patients with celiac disease and 80% of patients withdermatitis herpetiformis. The antibody is rarely found inother conditions. Transglutaminase Ab levels will decreaseor increase depending on the removal or reintroduction of gluten into the diet. Patients who are IgA deficient developceliac disease more frequently than individuals who have anintact IgA system. Therefore, gliadin and transglutaminaseIgA antibodies may be absent in patients with celiac disease.IgG antibodies to gliadin are especially helpful in IgAdeficient patients. These test results were obtained with the Envia LáVA QUANTA Liteh-tTG IgA YOLA. h-tTG IgA values obtained with differentmanufacturers' assay methods may not be used interchangeably. Performed By: #### G SHIVA VILLANUEVA, RETAB ####[address] [address] RETABon 10-20-2017 Reticulin IgA and IgG Antibodies Negative Normal [facility] ([place] Comment on above: Result Comment: Refe renindu range: Negative(NOTE) ADDITIONAL INFORMATION This test was developed and its performance characteristicsdetermined by [facility] in a manner consistent with CLIArequirements. This test has not been cleared or approved bythe U.S. Food and Drug Administration.Test Performed by: [facility] [address],[place] [address], unless otherwise specified.Performed By:Automation Qa Tester: HANK#: Phone#: Performed By: #### SHIVA ARORA RETAB ####[place] [address] [place] [address] GLIADon 10-19-2017 Gliadin Ab IgA <20 Normal [facility] ([place] Comment on above: Result Comment: Glia din IgG and IgA Ab Interpretation (effective 08/31/07): Result Units Negative <20 Weak Positive 20-30 Moderate to Strong Positive >30Both IgG and IgA antibodies to gliadin are present in most patients with celiac disease (CD). However, antibody to gliadin may be present in Crohn's disease, dermatitisherpetiformis or in subjects with no clinical evidence ofintestinal disease. In healthy individuals with a familyhistory of CD, the antibodies may precede the clinical onsetof disease in approximately 25% of the subjects. Gliadinantibody levels will decrease or increase depending on theremoval or reintroduction of gluten into the diet. Patients Performed By: #### SHIVA ARORA, RETAB ####[place] [address] Gliadin Ab IgG <20 Normal [facility] ([place] Comment on above: Result Comment: Glia din IgG and IgA Ab Interpretation (effective 08/31/07): Result Units Negative <20 Weak Positive 20-30 Moderate to Strong Positive >30Both IgG and IgA antibodies to gliadin are present in most patients with celiac disease (CD). However, antibody to gliadin may be present in Crohn's disease, dermatitisherpetiformis or in subjects with no clinical evidence ofintestinal disease. In healthy individuals with a familyhistory of CD, the antibodies may precede the clinical onsetof disease in approximately 25% of the subjects. Gliadinantibody levels will decrease or increase depending on theremoval or reintroduction of gluten into the diet. Patients Performed By: #### SHIVA ARORA, RETAB ####[place] [address] [place], [place] [id number] [facility] Note on 07-19-2017 [facility] Normal [facility] ([place]) Patient Summary Documentson 06-29-2017 Patient Summary Documents Normal [facility] ([place] [facility] Note on 06-15-2017 [facility] Note Normal [facility] ([place] Patient Summary Documentson 06-15-2017 Patient Summary Documents Normal [facility] ([place] Vital Signs Date Time Vital Sign Value Performing Clinician Facility 07-16-2023 13:04-0400 Body height 172.7 cm [place] [employer] AUTO MECHANIC SUPERVISOR Work Phone: [facility] 07-16-2023 13:04-0400 Body mass index (BMI) [Ratio] 38.03 kg/m2 [employer] AUTO MECHANIC SUPERVISOR Work Phone: [facility] 07-16-2023 13:04-0400 Body weight 113.44 kg [employer] AUTO MECHANIC SUPERVISOR Work Phone: [facility] 07-16-2023 13:04-0400 Diastolic blood pressure 82 mm[Hg] [place] [employer] AUTO MECHANIC SUPERVISOR Work Phone: [facility] 07-16-2023 13:04-0400 Heart rate 76 /min [employer] [employer] AUTO MECHANIC SUPERVISOR Work Phone: [facility] 07-16-2023 13:04-0400 SaO2% (BldA) [Mass fraction] 93 % [employer] [employer] AUTO MECHANIC SUPERVISOR Work Phone: [facility] 07-16-2023 13:04-0400 Systolic blood pressure 126 mm[Hg] [place] [employer] AUTO MECHANIC SUPERVISOR Work Phone: [facility] 04-01-2023 15:19-0400 Body temperature 97.6 [degF] MD MINA BARRY Work Phone: [facility] 04-01-2023 15:19-0400 Diastolic blood pressure 64 mm[Hg] MD MINA BARRY Work Phone: [facility] 04-01-2023 15:19-0400 Heart rate 90 /min MD MINA BARRY Work Phone: [facility] 04-01-2023 15:19-0400 Respiratory rate 18 /min MD MINA BARRY Work Phone: [facility] 04-01-2023 15:19-0400 SaO2% (BldA) [Mass fraction] 97 % MD MINA BARRY Work Phone: [facility] 04-01-2023 15:19-0400 Systolic blood pressure 123 mm[Hg] MD MINA BARRY Work Phone: [facility] 04-01-2023 14:46-0400 Inhaled oxygen flow rate 2 L/min MD MINA BARRY Work Phone: [facility] 04-01-2023 12:01-0400 Body height 172.72 cm MD MINA BARRY Work Phone: [facility] 04-01-2023 12:01-0400 Body mass index (BMI) [Ratio] 35.4 kg/m2 MD MINA BARRY Work Phone: [facility] 04-01-2023 12:01-0400 Body weight 105.7 kg MD MINA BARRY Work Phone: [facility] 03-27-2023 10:04-0400 Body mass index (BMI) [Ratio] 34.9 kg/m2 MD MINA BARRY Work Phone: [facility] 03-27-2023 10:04-0400 Body temperature 96.2 [degF] MD MINA BARRY Work Phone: [facility] 03-27-2023 10:04-0400 Body weight 107.5 kg MD MINA BARRY Work Phone: [facility] 03-27-2023 10:04-0400 Diastolic blood pressure 73 mm[Hg] MD MINA BARRY Work Phone: [facility] 03-27-2023 10:04-0400 Heart rate 65 /min MD MINA BARRY Work Phone: [facility] 03-27-2023 10:04-0400 Respiratory rate 17 /min MD MINA BARRY Work Phone: [facility] 03-27-2023 10:04-0400 SaO2% (BldA) [Mass fraction] 96 % MD MINA BARRY Work Phone: [facility] 03-27-2023 10:04-0400 Systolic blood pressure 122 mm[Hg] MD MINA BARRY Work Phone: [facility] 03-26-2023 17:52-0400 Body height 175.26 cm MD MINA BARRY Work Phone: [facility] 03-26-2023 17:52-0400 Body mass index (BMI) [Ratio] 34.4 kg/m2 MD MINA BARRY Work Phone: [facility] 03-26-2023 17:52-0400 Body temperature 98 [degF] MD MINA BARRY Work Phone: [facility] 03-26-2023 17:52-0400 Body weight 105.64 kg MD MINA BARRY Work Phone: [facility] 03-26-2023 17:52-0400 Diastolic blood pressure 106 mm[Hg] MD MINA BARRY Work Phone: [facility] 03-26-2023 17:52-0400 Heart rate 90 /min MD MINA BARRY Work Phone: [facility] 03-26-2023 17:52-0400 Respiratory rate 14 /min MD MINA BARRY Work Phone: [facility] 03-26-2023 17:52-0400 SaO2% (BldA) [Mass fraction] 96 % MD MINA BARRY Work Phone: [facility] 03-26-2023 17:52-0400 Systolic blood pressure 141 mm[Hg] MD MINA BARRY Work Phone: [facility] 02-12-2023 13:08-0400 Body mass index (BMI) [Ratio] 35.4 kg/m2 MD IMNA BARRY Work Phone: [facility] 02-12-2023 13:08-0400 Body temperature 97.9 [degF] MD MINA BARRY Work Phone: [facility] 02-12-2023 13:08-0400 Body weight 105.68 kg MD MINA BARRY Work Phone: [facility] 02-12-2023 13:08-0400 Diastolic blood pressure 84 mm[Hg] MD MINA BARRY Work Phone: [facility] 02-12-2023 13:08-0400 Heart rate 88 /min MD MINA BARRY Work Phone: [facility] 02-12-2023 13:08-0400 Respiratory rate 16 /min MD MINA BARRY Work Phone: [facility] 02-12-2023 13:08-0400 SaO2% (BldA) [Mass fraction] 95 % MD MINA BARRY Work Phone: [facility] 02-12-2023 13:08-0400 Systolic blood pressure 144 mm[Hg] MD MINA BARRY Work Phone: [facility] 02-11-2023 15:19-0400 Diastolic blood pressure 87 mm[Hg] [facility] 02-11-2023 15:19-0400 Respiratory rate 16 /min [facility] 02-11-2023 15:19-0400 SaO2% (BldA) [Mass fraction] 98 % [facility] 02-11-2023 15:19-0400 Systolic blood pressure 117 mm[Hg] [facility] 02-11-2023 13:49-0400 Heart rate 82 /min [facility] 02-11-2023 11:20-0400 Body height 172.72 cm [facility] 02-11-2023 11:20-0400 Body mass index (BMI) [Ratio] 36 kg/m2 [facility] 02-11-2023 11:20-0400 Body temperature 97.8 [degF] [facility] 02-11-2023 11:20-0400 Body weight 107.5 kg [facility] 07-28-2022 12:52-0400 Body temperature 102.51 [degF] [facility] EXPLOSIVES ENGINEER.AUTO MECHANIC SUPERVISOR Work Phone: [facility] 07-28-2022 12:52-0400 Body weight 111.04 kg Lizbethmeliza [facility] EXPLOSIVES ENGINEER.AUTO MECHANIC SUPERVISOR Work Phone: [facility] 07-28-2022 12:52-0400 Diastolic blood pressure 92 mm[Hg] Lizbeth Pendlebury EXPLOSIVES ENGINEER.AUTO MECHANIC SUPERVISOR Work Phone: [facility] 07-28-2022 12:52-0400 Heart rate 119 /min Lizbeth Pendlebury EXPLOSIVES ENGINEER.AUTO MECHANIC SUPERVISOR Work Phone: [facility] 07-28-2022 12:52-0400 Respiratory rate 20 /min Lizbethmeliza [facility] EXPLOSIVES ENGINEER.AUTO MECHANIC SUPERVISOR Work Phone: [facility] 07-28-2022 12:52-0400 SaO2% (BldA) [Mass fraction] 96 % [facility]beth [facility] EXPLOSIVES ENGINEER.AUTO MECHANIC SUPERVISOR Work Phone: [facility] 07-28-2022 12:52-0400 Systolic blood pressure 152 mm[Hg] Lizbeth [facility] EXPLOSIVES ENGINEER.AUTO MECHANIC SUPERVISOR Work Phone: [facility] Encounters Encounter Date Encounter Type Care Provider Facility Start: 04-08-2025 ambulatory [facility] Facility:[facility] Start: 04-07-2025 Encounter for genera l adult medical examination without abnormal findings Roopa Wilkes [facility] Start: 11-15-2024 Encounter for genera l adult medical examination without abnormal findings Yunior Chi Bryant [facility] Start: 10-22-2024 End: 10-22-2024 ambulatory [facility] Facility: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 [facility] Work Phone: Start: 03-27-2023 End: 03-27-2023 Patient encounter procedure MD MINA BARRY Work Phone: [facility] Start: 03-26-2023 End: 03-26-2023 Emergency department patient visit MD MINA BARRY Work Phone: [facility] Start: 02-12-2023 End: 02-12-2023 Patient encounter procedure MD MINA BARRY Work Phone: [facility] Start: 02-11-2023 End: 02-11-2023 Patient encounter procedure MD MINA BARRY Work Phone: [facility] Start: 02-11-2023 End: 02-11-2023 [facility] Start: 07-28-2022 End: 07-28-2022 ambulatory Facility:[facility] Start: 07-28-2022 End: 07-28-2022 Patient encounter procedure Lizbeth Tineo APRN.CNP Work Phone: [facility] Comment on above: Pharyngitis, unspeci fied etiology (Primary Dx); Viral illness Start: 04-05-2022 End: 04-05-2022 [facility] Start: 11-17-2017 Ambulatory Seth Harris Facility :[facility] Start: 10-16-2017 End: 10-21-2017 Ambulatory Andres BARRY Facility:A Start: 06-29-2017 End: 06-29-2017 Emergency department patient visit SHERMAN RIVAS Facility:B Start: 06-15-2017 End: 06-15-2017 Emergency department patient visit ADEEL FISHER Facility:B Procedures Date Procedure Procedure Detail Performing Clinician Start: 04-01-2023 Umbilical hernioplasty MD MINA BARRY Work Phone: Start: 03-26-2023 CT of abdomen and pe lvis without contrast MD MINA BARRY Work Phone: Start: 02-11-2023 Radiography of ankle Start: 02-11-2023 Plain chest X-ray Start: 07-28-2022 STREP A MOLECULAR (POC) Lizbeth Tineo APRN.CNP Work Phone: Plan of Treatment Date Care Activity Detail Author Start: 07-16-2024 End: 07-16-2024 Patient encounter procedure 07/16/2024 10:00 AM EDT Office Visit [facility] [address] [place] [address] [place], Von Ambrocio, TERESITA [address] [place] [id number] [facility] Start: 06-13-2024 Tetanus vaccination Tetanus: Every 1 0yrs [facility] Start: 06-06-2023 Influenza vaccination Sequenti al Influenza Vaccine (#1) [facility] Start: 2023 Administration of he rpes zoster vaccine Zoster Vaccines (1 of 2) [facility] Start: 2023 Screening for malign ant neoplasm of colon Flexible sigmoidoscopy [facility] Start: 04-01-2023 [facility] Start: 02-11-2023 [facility] Start: 07-28-2022 End: 08-11-2022 Influenza virus A and B RNA and SARS-CoV-2 (COVID-19) N gene panel - Respiratory specimen by JACK with probe detection COVID WITH FLUA+B, ROUTINE Microbiology Routine Pharyngitis, unspecified etiology Viral illness Expected: 07/28/2022, Expires: 08/11/2022 [facility] Work Phone: Comment on above: Expected: 07/28/2022 , Expires: 08/11/2022 Start: 06-06-2022 Influenza vaccination INFLUENZA (#1) [facility] Start: 10-06-2021 DEPRESSION ASSESSMENT DEPRESSION ASS ESSMENT [facility] Start: 2018 COLOGUARD (FIT-DNA) COLOGUARD (FIT-D NA) [facility] Start: 2018 Colonoscopy COLONOSCOPY [facility] Start: 2018 COLORECTAL CANCER SCREENING COLORECTAL CANCER SCREENING [facility] Start: [address] COLONOGRAPHY [facility] Start: 2018 DIABETES SCREEN DIABETES SCREEN [facility] Start: 2018 FECAL OCCULT BLOOD FECAL OCCULT BLOO D [facility] Start: 2018 SIGMOIDOSCOPY SIGMOIDOSCOPY [facility] Start: 2008 LIPID SCREEN LIPID SCREEN [facility] Start: 1992 Urine microalbumin profile DTAP,TDAP,TD (1 - Tdap) [facility] Start: 1991 HEPATITIS C SCREENING HEPATITIS C [facility] Start: 1991 Hepatitis C screening Hepatitis C [facility] Start: 1991 HIV SCREENING HIV SCREENING [facility] Start: 1988 HIV screening HIV Screening [facility] Start: 1985 Depression screening using PHQ-9 (Patient Health Questionnaire 9) score Depression Screening (PHQ-2/9) [facility] Start: 1976 History and physical examination, annual for health maintenance Wellness Visit [facility] Start: 1973 COVID-19 VACCINE (#1) COVID-19 VACCI NE (#1) [facility] Start: 1973 HEPATITIS B (1 of 3 - 3-dose series) HEPATITIS B (1 of 3 - 3-dose series) [facility] Start: 1973 Prostate specific antigen measurement PSA Level [facility] Start: 1973 Screening for malign ant neoplasm of colon [facility] Bilirubin measuremen t, urine [facility] Hemoglobin [Presence ] in Urine [facility] Measurement of keton es in urine using dipstick [facility] Microscopic urinalysis [facility] Organism count, microscopic method [facility] Patient Education [facility] Work Phone: Patient referral [facility] Work Phone: pH of Urine [facility] Specific gravity of Urine [facility] Urinalysis, blood, qualitative [facility] Urine dipstick for glucose [facility] Urine dipstick for leukocyte esterase [facility] Urine dipstick for nitrite [facility] Urine dipstick for protein [facility] Urine examination [facility] Urine microscopy: epithelial cells [facility] Urobilinogen [Presen ce] in Urine [facility] White blood cell count [facility] Payers Date Payer Category Payer Self-pay [id number] 2022 Unknown [id number] 2020 Unknown [id number] 2017 Unknown [id number] 2017 Unknown [id number] Unknown [facility] [id number] Unknown [id number] Unknown [id number] Social History Date Type Detail Facility [facility] if ever smoked [facility] Work Phone: Start: 1975 Sex Assigned At Male [facility] Start: 07-28-2022 [facility] Never smoked tobacco [facility] Start: 07-28-2022 End: 07-16-2023 Tobacco use and exposure Smokeless tobacco non-user [facility] Start: 1975 Sex Assigned At Not on file [facility] Start: 02-11-2023 End: 03-31-2023 Tobacco smoking status NHIS Unknown if ever smoked [facility] Gender identity Not on file [facility] Start: 07-16-2023 Tobacco smoking stat us [facility]IS Ex-smoker [facility] History of tobacco use Current [facility] History of tobacco use [facility] Goals Date Patient Goal Desired Activity /State Mental Status Date Assessment Result Facility 04-01-2023 Cognitive function Awake;Alert;Appropriat e [facility] Work Phone: Clinical Notes 07-28-2022 to 07-16-2023 Service Unit Operator [employer] CNP - 07/16/2023 1:00 PM EDT Note Date & Type Note Facility 07-16-2023 History of Presen t illness Narrative Formatting of this note is different fro m the original. Images from the original note were not included. ENT New Patient Visit Patient Name: Serafin Mullins MR #: [id number] : 1975 Physicians: Jorge Barry MD (Family); Massimo Rodrigues DO (Referring) Chief Complaint/Reason for Visit: tinnitus & vertigo History of Present Illness: Serafin Mullins is a 48 y.o. y/o male presenting from PCP with c/o tinnitus & vertigo Serafin is a new patient to me who presents with concern for bilateral tinnitus & sporadic vertigo. Reports tinnitus initially started 10-15 years ago, vertigo waxing and waning for the last 20 years. Confirms associated hearing loss with tinnitus. Tinnitus described as ringing and is constant, but more noticeable at night or in quiet environment. Has known history of multiple concussions over the years, several family members with hearing loss, and occupational loud noise exposure. Denies recent illness, head/ear injury or surgery, new/change in medications, or other contributing factors. Vertigo described as spinning, lightheaded, and nausea and occurs maybe once a year lasting 5-10 minutes before subsiding. Exacerbated with quick head movements or with hotter weather. Will resolve with sitting stationary and closing eyes. Denies associated headache, facial paresthesia, extremity weakness, slurred speech, memory loss, or other constitutional symptoms. Treatment has included Meclizine with little benefit. Patient presents with his for evaluation. History: Past Medical History: Diagnosis Date Allergic rhinitis Peripheral vertigo Tinnitus Past Surgical History: Procedure Laterality Date HERNIA REPAIR imbillical TONSILLECTOMY wisdom tooth extraction Family History Problem Relation Age of Onset Hearing loss Mother Blindness Mother Social History Socioeconomic History Marital status: Tobacco Use Smoking status: Former Types: Cigarettes Smokeless tobacco: Never Allergy Information: I have reviewed the patient's allergies. Allergies Allergen Reactions Aspirin Other (See Comments) Penicillins Unknown Home Medications: No current outpatient medications on file. No current facility-administered medications for this visit. ROS: Review of Systems Constitutional: Negative for activity change, appetite change, fatigue and fever. HENT: Positive for hearing loss and tinnitus. Negative for congestion, ear discharge, ear pain, nosebleeds, postnasal drip, rhinorrhea, sinus pressure, sinus pain, sneezing, sore throat, trouble swallowing and voice change. Eyes: Positive for visual disturbance (glasses). Negative for pain, discharge, redness and itching. Respiratory: Negative for apnea, cough, choking, chest tightness, shortness of breath and wheezing. Cardiovascular: Negative for chest pain and palpitations. Gastrointestinal: Negative for nausea and vomiting. Musculoskeletal: Negative for arthralgias, back pain, gait problem, myalgias, neck pain and neck stiffness. Skin: Negative for color change, pallor, rash and wound. Allergic/Immunologic: Positive for environmental allergies. Negative for immunocompromised state. Neurological: Positive for dizziness and light-headedness. Negative for syncope, facial asymmetry, weakness, numbness and headaches. Hematological: Negative for adenopathy. Psychiatric/Behavioral: Negative for confusion. The patient is not nervous/anxious. Physical Examination: Vital Signs: BP 126/82 Pulse 76 Ht 5' 8 Wt 113.4 kg (250 lb 1.6 oz) SpO2 93% BMI 38.03 kg/m Physical Exam Vitals reviewed. Constitutional: General: He is not in acute distress. Appearance: He is well-developed. He is not ill-appearing or diaphoretic. HENT: Head: Normocephalic and atraumatic. No abrasion, contusion or laceration. Jaw: No tenderness, swelling or pain on movement. Right Ear: Tympanic membrane, ear canal and external ear normal. Decreased hearing noted. No drainage, swelling or tenderness. No middle ear effusion. No foreign body. No mastoid tenderness. Tympanic membrane is not scarred, perforated, retracted or bulging. Tympanic membrane has normal mobility. Left Ear: Tympanic membrane, ear canal and external ear normal. Decreased hearing noted. No drainage, swelling or tenderness. No middle ear effusion. No foreign body. No mastoid tenderness. Tympanic membrane is not scarred, perforated, retracted or bulging. Ears: Comments: Bilateral micro-otoscopy was used to rule out any abnormal middle ear translucent pathology. I do not appreciate any abnormal middle ear translucent pathology to either side. Bilateral tympanic membranes are intact without any perforations. There is good movement with auto insufflation. There is good light reflex to both sides. Nose: Nose normal. No nasal deformity, mucosal edema, congestion or rhinorrhea. Right Sinus: No maxillary sinus tenderness or frontal sinus tenderness. Left Sinus: No maxillary sinus tenderness or frontal sinus tenderness. Mouth/Throat: Lips: [place]. No lesions. Mouth: Mucous membranes are moist. No lacerations or oral lesions. Dentition: Normal dentition. No dental caries or dental abscesses. Tongue: No lesions. Palate: No mass. Pharynx: Uvula midline. No oropharyngeal exudate, posterior oropharyngeal erythema or uvula swelling. Tonsils: 0 on the right. 0 on the left. Eyes: General: No scleral icterus. Right eye: No discharge. Left eye: No discharge. Conjunctiva/sclera: Conjunctivae normal. Neck: Trachea: Phonation normal. Pulmonary: Effort: Pulmonary effort is normal. No respiratory distress. Musculoskeletal: General: Normal range of motion. Cervical back: Full passive range of motion without pain, normal range of motion and neck supple. No rigidity. Normal range of motion. Lymphadenopathy: Head: Right side of head: No submental, submandibular, tonsillar, preauricular or posterior auricular adenopathy. Left side of head: No submental, submandibular, tonsillar, preauricular or posterior auricular adenopathy. Cervical: No cervical adenopathy. Right cervical: No superficial, deep or posterior cervical adenopathy. Left cervical: No superficial, deep or posterior cervical adenopathy. Skin: General: Skin is warm and dry. Coloration: Skin is not pale. Findings: No erythema or rash. Neurological: General: No focal deficit present. Mental Status: He is alert and oriented to person, place, and time. GCS: GCS eye subscore is 4. GCS verbal subscore is 5. GCS motor subscore is 6. Cranial Nerves: Cranial nerves 2-12 are intact. No cranial nerve deficit. Motor: Motor function is intact. Coordination: Coordination is intact. Psychiatric: Attention and Perception: Attention normal. Mood and Affect: Mood normal. Mood is not anxious. Affect is not blunt. Speech: Speech normal. Behavior: Behavior normal. Behavior is cooperative. Thought Content: Thought content normal. Cognition and Memory: Cognition normal. Judgment: Judgment normal. Procedure Audiometry: Normal hearing sensitivity through 2000 Hz that slopes to a notched, sensorineural hearing loss that is centered at 4000 Hz, bilaterally. Tympanometry: Right: Type A Left: Type A Assessment and Plan: Serafin Mullins is a 48 y.o. y/o male presenting with bilateral noise induced hearing loss & vertigo New patient who reports history of decreased hearing. No acute/chronic pathology on exam today. Audiometry reveals Normal hearing sensitivity through 2000 Hz that slopes to a notched, sensorineural hearing loss that is centered at 4000 Hz, bilaterally. with type A tympanograms bilaterally. Patient is not considered a good hearing aid candidate at this time. Counseling on tinnitus completed in office today, discussed distraction techniques to use at home. Patient verbalized understanding and denies additional questions or concerns. History and symptoms suggestive of BPPV that is triggered with certain head movements and warmer weather per patient report. Has not had additional episode in several weeks, no neurologic deficits noted on exam today and patient is essentially asymptomatic in office today. Provided home sona maneuver to use for management if having recurrent vertigo. Offered to refer to vestibular therapy, patient is not interested at this time. Recommended annual hearing test to monitor for any hearing changes. Patient and verbalized understanding and are in agreement with plans of care. Follow-up 1 year or sooner with any changes or new concerns. Diagnoses and all orders for this visit: Noise-induced hearing loss of both ears - Ambulatory referral to Audiology; Future Subjective tinnitus, unspecified laterality - Ambulatory referral to ENT - Ambulatory referral to Audiology; Future Vertigo - Ambulatory referral to ENT - Ambulatory referral to Audiology; Future Von Quiñonez CNP 07/16/23 documented in this encounter [facility] 04-01-2023 History and physi seda note Note Date/Time April 01, 2023 1:06pm [facility] Medical Records Department [address] [place] [address] History & Physical Exam 04/01/23 1305 MR#: [id number] Acct: [id number] Name: SERAFIN MULLINS . Rep #:[id number] : 1975 47 From: Pj cuenca MD PCP: MINA BARRY MD Status:[facility] Location: [place] [address] History and Physical Date of Admission: 04/01/23 Intake Vital Signs ? 03/26/2317:52 03/27/2310:04 Height 5 ft 9 in 5 ft 9 in Weight: 232 lb 14.4 oz 237 lb BMI 34.4 34.9 BP 141/106 H 122/73 H Blood Pressure Location ? Rt brachial Position ? Sitting Respiration 14 17 Pulse 90 65 Pulse Source ? Monitor Temp 98 F 96.2 F L Temp Source Temporal Temporal Pulse Oximetry (%) 96 96 Oxygen Delivery Method ? room air Intake Visit Reasons:?UMBILICAL HERNIA ER 03/26 Chief Complaint: umbilical hernia ER 03/26 Is patient in pain?: Yes Allergies Penicillins Adverse Reaction (Unknown, Verified 03/27/23 10:05) PT UNSURE OF REACTIONaspirin [ASA] Adverse Reaction (Verified 03/27/23 10:05) Bleeding Medications hydrocodone-acetaminophen 5-325mg 5mg-325mg 1 tab PO Q4H PRN PRN Pain 2 days #10 TABLETS 03/26/23 [Rx Confirmed 03/27/23] meloxicam 15 mg tablet 15 mg PO DAILY 03/26/23 [History Confirmed 03/27/23] PFSH Medical History?(Updated 03/27/23 @ 10:[address] Pj Negro MD) Asthma Contusion of right ankle Vasovagal syndrome Surgical History? Hx of tonsillectomy Social History? Smoking Status:? Former smoker alcohol intake:? never HPI HPI HPI: Patient is a 47-year-old male who was in the emergency room yesterday with umbilical pain.? The patient reports he has had an umbilical hernia for 6 years but he usually pushes it back in but now all of a sudden got very painful yesterday.? Today the pain is better after it was reduced yesterday in the emergency room.? Patient denies any nausea or vomiting or fevers or chills. ROS General General: Yes fatigue; No weight change, appetite, colon cancer, breast cancer or weakness HEENT HEENT: No difficulty swallowing, eye injury, eye surgery, swollen glands or hoarseness Endo Endocrine: No thyroid disease, diabetes mellitus, thyroid cancer, Hair loss, heat intolerance or cold intolerance Skin Skin: No rash or changing moles Musc Musculoskeletal: Yes arthritis; No back problems, rheumatoid arthritis, gout or joint pain Cardio Cardiovascular: No murmur, pacemaker, heart disease, atrial fibrillation, high blood pressure, heart attack, heart stent, palpitations, shortness of breat withexertion or chest pain Psych Psychiatric: No depression, anxiety or hearing voices Resp Respiratory: No shortness of breath, No sleep apnea, No cough, No COPD, Yes asthma, No emphysema and No wheezing Gastro Gastrointestinal: Yes abdominal pain, No nausea or vomiting, Yes diarrhea, Yes constipation, No blood in stool, No acid reflux, No hemorrhoids, No ulcers, No gallbladder problem and No black,tarry stools Tha Hematologic: No blood thinners, No blood disorders, No bleeding, No anemia and No blood clots Neuro Neurologic: No system reviewed and no additional complaints, except as documented, No as per HPI, No abnormal gait, No abnormal hearing, No abnormal movements, No abnormal speech, No behavioral changes, No burning sensations, No confusion, No convulsions, No disequilibrium, No dizziness, No localized weakness, No frequent falls, No headache(s), No lack of coordination, No loss ofvision, No memory loss, No numbness, No other visual disturbances, No radicular pain, No restless legs, No sensory deficit, No syncope, No tingling, No tremor(s), No weakness and No other Exam Const General: cooperative Orientation: alert and oriented x3 HENMT Head: normal to inspection Neck Neck: normal visual inspection and full ROM Chest Chest palpation & inspection: normal inspection of the chest Resp Effort & Inspection: normal respiratory effort Auscultation: clear to auscultation bilaterally Cardio Rate: regular rate Rhythm: regular rhythm GI Inspection: non-distended Palpation: soft, hernia umbilical and nontender Skin General: no rashes or lesions noted Neuro General: patient alert and patient oriented x3 Extrem General: full ROM Psych Appearance: grossly normal Mental Status: mental status grossly normal Assessment and Plan Assessment and Plan (1) Hernia, umbilical: ?Status:?Acute ?Qualifiers: ?Obstruction and gangrene presence:?without obstruction or gangrene? Qualified Code(s):?K42.9 - Umbilical hernia without obstruction or gangrene ?Plan: Patient has a painful umbilical hernia he would like repaired.? I discussed openumbilical hernia repair with mesh with the patient in detail.? I discussed the risks including but not limited to bleeding, infection, injury to underlying organs.? Patient understands all the risks and will be scheduled for umbilical hernia repair with mesh. Pj Negro MD Pager: [facility] [address] [place] [address], [address] [place] [phone] Office: I have examined the patient and the H&P has been reviewed. There are no clinicalchanges since date of exam. 04/01/23 1306 <Electronically signed by Pj Negro MD> Cosigner Signature (if applicable): CC: Dr. Pj Negro MD; MINA BARRY MD~ Signed [facility] Work Phone: [phone] 779-574106-27-2023 Procedure [facility] 02-11-[address] [facility] February 11, 2023 3:19pm Note Date/Time February 11, 2023 11:32a m [facility] Medical Records Department [address] [place], [place] [id number] Emergency Department Summary 02/11/23 MR#: [id number] Acct: [id number] Name: SERAFIN MULLINS Rep #:[id number] : 1975 47 From: Tez Velázquez PCP: MINA BARRY MD Status:REG ER Location: ED HPI History of Present Illness Chief Complaint: Lower Extremity Injury PFSH PFSH Medical History no medical history Allergy/AdvReac Type Severity Reaction Status Date / Time Penicillins AdvReac Unknown PT UNSURE Verified 02/11/23 11:57 OF REACTION aspirin [ASA] AdvReac Bleeding Verified 02/11/23 12:19 Surgical History no surgical history Social History Smoking Status: Former smoker EXAM Physical Exam Const Vital Signs: 02/11/23 11:20 02/11/23 12:05 02/11/23 13:49 Temperature 97.8 F Temperature Source Oral Pulse Rate 68 82 Respiratory Rate 18 16 Blood Pressure 109/85 H 120/80 Blood Pressure Mean 93 93 Pulse Ox 97 98 95 Oxygen Delivery Method Room Air Room Air MDM MDM MDM Narrative Medical decision making narrative: HISTORY OF PRESENT ILLNESS: 47-year-old male here for right foot pain after dropping heavy object while at work. Patient states after this he became dizzy, lightheaded thought he may have lost consciousness. Denies any chest pain or shortness of breath. The patient denies recent surgery in the last 4 weeks or immobilization in the last 3 days, denies previous diagnosis of DVT or PE, hemoptysis, unilateral leg swelling or malignancy with treatment the last 6 months. No estrogen use noted. Patient denies sudden onset of pain, no tearing sensation, no migratory symptoms, no new numbness, weakness or loss of sensation. Patient denies family history or personal history of Marfan syndrome or Amy-Danlos REVIEW OF SYMPTOMS: Pertinent positives: Lightheadedness, dizziness, ankle pain, numbness Pertinent negatives: Chest pain, shortness of breath, focal weakness, loss of sensation PHYSICAL EXAM: Nursing triage notes reviewed, Vital signs reviewed Constitutional: please see mdm HENT: MMM Eyes: Pupils equal round and reactive to light, Extraocular muscles intact Neck: No stridor, no JVD, full neck ROM Lungs: Clear to auscultation, No wheezing or rales. No increased work of breathing, no conversational dyspnea, no accessory muscle use, no nasal flaring. No respiratory distress noted Heart: Regular rate and rhythm, No murmurs, No rubs and No gallops, 2+ distal pulses (radial, femoral, posterior tibial) in all extremities Abdomen: Soft, there is no tenderness, rigidity, rebound or guarding, no obvious peritoneal signs, no palpable pulsatile abdominal masses, no auscultated abdominal bruit : No CVAT Extremities: No edema, no obvious deformity, compartments are soft Neuro: Initial neuro exam: Alert and oriented x3, neuro exam at baseline, cranial nerves II through XII are intact. No pain with extraocular muscle movement. There is negative test of skew. Normal speech. 5 of 5 strength in upper and lower extremities in flexion extension. Intact sensation to light touch in upper and lower extremity dermatomes. No truncal or extremity ataxia. No dysdiadochokinesia. Normal gait. 2+ reflexes. No meningeal signs. Negative Babinski. NIH of 0. In bilateral lower extremities intact sensation L1-S1 dermatomal distributions. Intact 5/5 strength in hip flexion (T12-L3). Knee extension (L2-L4). Ankle dorsiflexion (L4-L5). Ankle plantar flexion (S1). Great toe extension (L5). 2+ patellar and Achilles DTRs. Repeat neuro exam: Alert and oriented x3, neuro exam at baseline, cranial nerves II through XII are intact. No pain with extraocular muscle movement. There is negative test of skew. Normal speech. 5 of 5 strength in upper and lower extremities in flexion extension. Intact sensation to light touch in upper and lower extremity dermatomes. No truncal or extremity ataxia. No dysdiadochokinesia. Normal gait. 2+ reflexes. No meningeal signs. Negative Babinski. NIH of 0 Skin: Small abrasion noted to the right medial malleolus, no obvious bruising, edema, lacerations MEDICAL DECISION MAKING: Chief Complaint: Syncope, right foot pain External records reviewed: No recent cardiac catheterization, stress test or echocardiogram noted MDM Narrative: I considered the following differential diagnosis: Vasovagal syncope, dehydration, arrhythmia, anemia, electrolyte abnormality fracture dislocation The patient was initially hemodynamically stable, afebrile, nontoxic-appearing. Exam without focal neurologic deficits, NIH of 0. Right ankle was neurovascular intact with no obvious deformities. Given the patient's report of feeling lightheaded, dizzy and his report of near syncope I obtained a broad lab and imaging work-up to further elucidate the etiology of the patient's complaints. Labs and images without significant findings to suggest myocardial ischemia, anemia, electrode abnormalities, pneumonia, fracture dislocation to the right ankle. Patient is likely suffering right ankle contusion which precipitated a vasovagal event. He was reassessed after 1 L normal saline states he felt symptomatically better. Repeat neurologic exam remained intact. The patient is appropriate for discharge home for outpatient evaluation management by his primary care physician. Strict return precautions were discussed. Family updated. All questions answered. I considered intracranial pathologies of subarachnoid hemorrhage however patient denied a headache. I also considered pulmonary embolism however patient had a low risk Wells score, PERC negative. I have a low suspicion for pulmonary VTE at this time. Also consider dissection however patient did not have any chest pain, pulse deficits or I considered acute CVA however patient no focal neurologic deficits NIH of 0 below suspicion for stroke at this time Aspirin was given for mortality benefit. Patient refused aspirin. Labs and images were remarkable for no evidence of significant anemia, electrolyte abnormalities, dehydration, myocardial ischemia. EKG without evidence of myocardial ischemia. Delta troponin was also negative. Factors affecting care: None Social determinants of health: Former smoker History obtained from others: The patient's , family friend Shared decision making: I will have a discussion with the patient and or visitors regarding risk/benefits of further testing or admission. They will be made aware of of the risk/benefits inherent in this decision they will be given the opportunity to voice understanding. Consults: None History & Record Review Discussion w/independent historian: Patient and Family Lab Data Attestation: I reviewed the patient's lab results. Lab results narrative: EKG with normal sinus rhythm, normal axis, normal intervals, no STEMI CBC without leukocytosis, severe anemia, no thrombocytopenia. Troponin is negative, no evidence of myocardial ischemia, delta troponin negative BMP with mild hypokalemia, no other significant electrolyte abnormalities, no anion gap to suggest end-organ hypoperfusion, Labs: Laboratory Results - last 24 hr 02/11/23 02/11/23 02/11/23 12:15 12:15 14:25 WBC 8.4 RBC 5.53 Hgb 15.6 Hct 46.5 MCV 84.1 MCH 28.2 MCHC 33.5 RDW Std Deviation 38.8 RDW Coeff of Martina 12.8 Plt Count 273 MPV 9.5 Immature Gran % (Auto) 0.200 Neut % (Auto) 49.7 Lymph % (Auto) 36.0 Nye % (Auto) 9.5 Eos % (Auto) 3.6 Baso % (Auto) 1.0 Absolute Neuts (auto) 4.2 Absolute Lymphs (auto) 3.02 Nucleated RBC % 0 Sodium 139 Potassium 3.1 L Chloride 105 Carbon Dioxide 25.0 Anion Gap 9 BUN 16 Creatinine 0.88 Estim Creat Clear Calc 98.24 Est GFR (MDRD) Af Amer 118 Est GFR (MDRD) Non-Af 98 BUN/Creatinine Ratio 18.2 Glucose 108 H Calcium 9.3 Troponin I High Sens 4 4 Radiography Chest X-Ray - ED: Read by ED Physician Diagnostic Testing: Clinical Impression(s) from Imaging Studies Chest X-Ray 02/11/23 12:05 IMPRESSION: Hyperinflation. The lungs are clear. Electronically Signed: Dawson Saldaña MD at 12:47 EDT , Ankle X-Ray 02/11/23 12:20 IMPRESSION: Plantar spur. No acute abnormality is seen. Electronically Signed: Dawson Saldaña MD at 12:46 EDT , I have personally reviewed the patient's chest x-ray. Chest x-ray is unremarkable for pulmonary edema, pneumothorax, pneumonia or focal cardiopulmonary abnormality. Discharge Plan Triage Chief Complaint: Lower Extremity Injury ED Provider: Tez Webb Dx/Rx/DC Orders Instructions: ED Contusion, Lower Extremity, ED Fainting, Vagal Reaction Stand Alone Forms: ED Work / School Excuse Primary Care Provider: MINA BARRY Referrals: MINA BARRY MD [Primary Care Provider] - Activity Restrictions/Additional Instructions: Thank you for trusting us with your care today! Please take Tylenol (2 pills, 650 mg), ibuprofen (2 pills, 400 mg) every 6 hoursas needed for pain and fever control. Please return to the emergency department if your symptoms change or worsen. Please follow with your primary care physician for further outpatient evaluationand management. Disposition Disposition: Home, Self Care What to do if you have Problems For any increased pain, shortness of breath, bleeding, nausea or vomiting, chestpain, or any unexpected problems, contact your Primary Care Provider. Call [facility] ([phone]) or report to the closest Emergency Room. Call 911 if necessary. 02/11/23 6029 <Electronically signed by Tez Webb DO> Cosigner Signature (if applicable): CC: MINA BARRY MD ~ Signed [facility] Work Phone: [phone]) 851-986710-23-2022 Influenza virus A and B RNA and SARS-CoV-2 (COVID-19) N gene panel JACK+probe (Resp)COVID 19 RESULT: SARS-CoV-2 (Agent of COVID-19) Detected by RT-PCR or equivalent method. manuel [id number] (BEULAH)_EUA This test was developed and its performance characteristics determined by [facility] [place]. This test has been authorized by FDA under an Emergency Use Authorization (EUA). This test has been validated in accordance with the FDA's Guidance Document Policy for DiagnosticsTesting in Laboratories Certified to Perform High Complexity Testing under CLIA prior to Emergency use Authorization for Coronavirus Disease 2019 during the Public Health Emergency issued on December 04, 2019. Test performed by [facility], [facility]ology and Laboratory Medicine [place], [address] [place] [address]. INFLUENZA A PCR: Negative for Influenza A by RT-PCR INFLUENZA B PCR: Negative for Influenza B by RT-PCRMiddletown HospitalComment on above: Performed By: #### [id number] #### [facility] CLIA [id number] [address] [place] [address] [place] [id number] NoteHNO ID: [id number] Author: Lizbeth Tineo APRN.[employer] Service: ? Author Type: Nurse Practitioner Type: Progress Notes Filed: 07/28/2022 1:56 PM Note Text: Subjective HPI Nontoxic-appearing male presents urgent care chief complaint sore throat body aches chills fever cough fatigue nasal congestion chest discomfort. Duration of symptoms 1 day. Associated symptoms listed above. Patient states was around nephew who did have strep throat. Denies any OTC medications today. Worst pain symptom is fatigue and body aches. Denies any productive cough nausea vomiting abdominal pain shortness of breath hemoptysis change in bowel or bladder habits. Past medical history prescription medication use allergies reviewed. .Patient presents with: Fever: ST, congestion, body aches x1 day History reviewed. No pertinent past medical history. History reviewed. No pertinent surgical history. ALLERGIES Aspirin MEDICATIONS ALBUTEROL INHALATION Inhale as instructed. History reviewed. No pertinent family history. Social History Tobacco Use Smoking status: Never Smokeless tobacco: Never BP 152/92 Pulse 119 Temp (!) 39.2 ?C (102.5 ?F) Resp 20 Wt 111 kg (244 lb 12.8 oz) SpO2 96% Review of Systems Constitutional: Positive for chills, fever and malaise/fatigue. HENT: Positive for congestion and sore throat. Negative for ear discharge, ear pain and sinus pain. Eyes: Negative for blurred vision, pain, discharge and redness. Respiratory: Positive for cough. Negative for hemoptysis, sputum production, shortness of breath, wheezing and stridor. Cardiovascular: Negative for chest pain. Gastrointestinal: Negative for abdominal pain, diarrhea, nausea and vomiting. Musculoskeletal: Positive for myalgias. Skin: Negative for itching and rash. Neurological: Positive for headaches. Negative for dizziness. Objective Physical Exam Constitutional: General: He is not in acute distress. Appearance: He is not diaphoretic. HENT: Head: Normocephalic. Nose: Congestion present. Mouth/Throat: Mouth: Mucous membranes are moist. Pharynx: Oropharynx is clear. No oropharyngeal exudate or posterior oropharyngeal erythema. Eyes: Conjunctiva/sclera: Conjunctivae normal. Pupils: Pupils are equal, round, and reactive to light. Cardiovascular: Rate and Rhythm: Normal rate and regular rhythm. Heart sounds: Normal heart sounds. Pulmonary: Effort: Pulmonary effort is normal. No tachypnea, accessory muscle usage or respiratory distress. Breath sounds: Normal breath sounds. No stridor. No wheezing, rhonchi or rales. Abdominal: Palpations: Abdomen is soft. Tenderness: There is no abdominal tenderness. There is no guarding or rebound. Musculoskeletal: Cervical back: Normal range of motion and neck supple. No rigidity or tenderness. Lymphadenopathy: Cervical: No cervical adenopathy. Skin: General: Skin is warm and dry. Neurological: Mental Status: He is alert and oriented to person, place, and time. ASSESSMENT/PLAN: 1. Pharyngitis, unspecified etiology - ICD9: 462, ICD10: J02.9 (primary diagnosis) - STREP A MOLECULAR (POC) - COVID WITH FLUA+B, ROUTINE 2. Viral illness - ICD9: 079.99, ICD10: B34.9 - COVID WITH FLUA+B, ROUTINE Strep test was negative. We will test for COVID-19 at this time. Red flags for prompt reevaluation discussed. Patient was educated on supportive therapies. Patient will follow up with primary care provider as needed. Patient was instructed to immediately proceed to emergency room for any new, worsening, or symptoms lasting longer than anticipated. The patient's clinical presentation is otherwise unremarkable at this time. Based on exam and clinical finding, the patient is stable for discharge. Plan of care was discussed with patient. Patient verbalizes understanding and agrees to plan of care. This note was generated using Bringrs software. It may contain errors in wording, punctuation, or spelling. Lizbeth Tineo APRN.[facility]10-23-2022 Instructions* Patient Instructions* Lizbeth Tineo APRN.[facility] - 07/28/2022 1:14 PM EDT How to Manage Common Symptoms Associated with COVID for Adults Fever- Fever is a temperature over 100.4 F and can occur when the body is fighting an infection. Tohelp treat a fever: Drink plenty of fluids and stay well hydrated. Eat small amounts of easy to digest food. Rest. Your body needs rest to recover, but getting up and moving around the house frequently is a good idea. You should try to continue doing your normal daily activities (bathing, toileting, grooming, cooking), though you will probably feel tired, and need to rest often. Avoid any heavy activity or exercise, as this will increase your body temperature. Dress in light clothing and stay covered in a light sheet. Keep the room temperature cool. Take a slightly warm (not cold or cool) bath, or apply damp washcloths to the forehead and wrists. Cough- Cough is a common symptom associated with COVID and can be bothersome. To help treat a cough: Stay well hydrated. Try warm water or tea with lemon and/or honey to help soothe the cough. Use a humidifier to add moisture to the air. Try a product with menthol, like a cough drop or a rub for your chest such as Vicks, which can helpreduce cough. Try cough drops. Avoid smoking and other strong odors or perfumes. Try breathing exercises to keep your lungs open and clear. Take a big deep breath through your noseand hold for 5 seconds before slowly releasing. Repeat frequently, while you are awake. Congestion- Runny nose or nasal congestion can occur with COVID. Treatment can help relieve symptoms: Try OTC nasal saline spray, or nasal saline rinse to relieve mucus congestion. Nasal strips can help keep nasal passages open, to increase airflow. Elevating your head with an extra pillow in bed can help reduce congestion. Using a humidifier can increase moisture in the air, and make breathing easier. Sore Throat- Another common symptom with COVID, can be managed at home by: Stay well hydrated. Gargle with salt water - mix teaspoon salt with 1 cup of warm water and gargle. This helps to loosen mucus in the back of the throat and may reduce discomfort. Try ice chips, popsicles or lozenges to soothe the throat. Nausea/Vomiting/Diarrhea- These are common symptoms, and staying hydrated is most important. If you are nauseous or vomiting, start with small sips of water every 10-15 minutes and increase astolerated. You can try sucking an ice cube too. If tolerating, you can try pedialyte or Gatorade, or flat sprite or sukumar-milagros. Start slowly and increase as you are able to. Instead of meals, try smaller, more frequent snacks. Try eating bland foods like crackers, toast, rice, and applesauce. Avoid spicy, greasy or fried foods and dairy containing foods. Even if you aren't feeling hungry due to lack of smell or taste, it is important to try to take in some food when you are able. After drinking and eating, rest in an upright position for up to two hours as needed to help decrease nauseous feelings. Try closing your eyes, avoid moving and watching TV. Avoid strong odors that can make you feel more nauseated. When to seek emergency medical attention Look for emergency warning signs for COVID-19. If having any of these symptoms, seek emergency medical care immediately: Trouble breathing Persistent pain or pressure in the chest New confusion Inability to wake or stay awake Bluish lips or face *This list is not all possible symptoms. Please call your medical provider for any other symptoms that are severe or concerning to you. [facility] History of Present illness Narrative* Lizbeth Tineo APRN.CNP - 07/28/2022 12:57 PM EDT Subjective HPI Nontoxic-appearing male presents urgent care chief complaint sore throat body aches chills fever cough fatigue nasal congestion chest discomfort. Duration of symptoms 1 day. Associated symptoms listed above. Patient states was around nephew who did have strep throat. Denies any OTC medications today. Worst pain symptom is fatigue and body aches. Denies any productive cough nausea vomiting abdominal pain shortness of breath hemoptysis change in bowel or bladder habits. Past medical history prescription medication use allergies reviewed. .Patient presents with: Fever: ST, congestion, body aches x1 day History reviewed. No pertinent past medical history. History reviewed. No pertinent surgical history. ALLERGIES Aspirin MEDICATIONS ALBUTEROL INHALATION Inhale as instructed. History reviewed. No pertinent family history. Social History Tobacco Use Smoking status: Never Smokeless tobacco: Never BP 152/92 Pulse 119 Temp (!) 39.2 C (102.5 F) Resp 20 Wt 111 kg (244 lb 12.8 oz) SpO2 96% Review of Systems Constitutional: Positive for chills, fever and malaise/fatigue. HENT: Positive for congestion and sore throat. Negative for ear discharge, ear pain and sinus pain. Eyes: Negative for blurred vision, pain, discharge and redness. Respiratory: Positive for cough. Negative for hemoptysis, sputum production, shortness of breath, wheezing and stridor. Cardiovascular: Negative for chest pain. Gastrointestinal: Negative for abdominal pain, diarrhea, nausea and vomiting. Musculoskeletal: Positive for myalgias. Skin: Negative for itching and rash. Neurological: Positive for headaches. Negative for dizziness. Objective Physical Exam Constitutional: General: He is not in acute distress. Appearance: He is not diaphoretic. HENT: Head: Normocephalic. Nose: Congestion present. Mouth/Throat: Mouth: Mucous membranes are moist. Pharynx: Oropharynx is clear. No oropharyngeal exudate or posterior oropharyngeal erythema. Eyes: Conjunctiva/sclera: Conjunctivae normal. Pupils: Pupils are equal, round, and reactive to light. Cardiovascular: Rate and Rhythm: Normal rate and regular rhythm. Heart sounds: Normal heart sounds. Pulmonary: Effort: Pulmonary effort is normal. No tachypnea, accessory muscle usage or respiratory distress. Breath sounds: Normal breath sounds. No stridor. No wheezing, rhonchi or rales. Abdominal: Palpations: Abdomen is soft. Tenderness: There is no abdominal tenderness. There is no guarding or rebound. Musculoskeletal: Cervical back: Normal range of motion and neck supple. No rigidity or tenderness. Lymphadenopathy: Cervical: No cervical adenopathy. Skin: General: Skin is warm and dry. Neurological: Mental Status: He is alert and oriented to person, place, and time. ASSESSMENT/PLAN: 1. Pharyngitis, unspecified etiology - ICD9: 462, ICD10: J02.9 (primary diagnosis) - STREP A MOLECULAR (POC) - COVID WITH FLUA+B, ROUTINE 2. Viral illness - ICD9: 079.99, ICD10: B34.9 - COVID WITH FLUA+B, ROUTINE Strep test was negative. We will test for COVID-19 at this time. Red flags for prompt reevaluation discussed. Patient was educated on supportive therapies. Patient will follow up with primary care provider as needed. Patient was instructed to immediately proceed to emergency room for any new, worsening, or symptoms lasting longer than anticipated. The patient's clinical presentation is otherwise unremarkable at this time. Based on exam and clinical finding, the patient is stable for discharge. Plan of care was discussed with patient. Patient verbalizes understanding and agrees to plan of care. This note was generated using Bringrs software. It may contain errors in wording, punctuation, or spelling. Lizbeth Tineo APRN.TERESITA documented in this encounterCleveland ClinicDischarge summary Author Dr. Negro [facility] April 01, 2023 2:33pm Note Date/Time April 01, 2023 2:32 pm [facility] Medical Records Department [address] [place] [address] Instructions for Home/Discharge Instructions 04/01/23 1432 MR#: [id number] Acct: [id number] Name: SERAFIN MULLINS Jr. Rep #:[id number] : 1975 47 From: Pj cuenca MD PCP: MINA BARRY MD Status:REG [facility] Discharge Instructions Procedure Hernia Diet Discharge Diet: Light diet - advance as tolerated Activity Discharge Activity: May Not Drive (for 2-3 days or while taking narcotic pain meds.) and May Shower (with the bandage in place 1-2 days after surgery.) Lifting Restrictions: 20 pounds for 4 weeks. Additional Activity Instructions:: Climbing stairs is fine, walking is encouraged. Sitting in bed may be uncomfortable. Sitting up using your lateral muscles (sitting up sideways) is usually more comfortable. Do not drive, work heavy equipment of sign legal documents for 24 hours. Pain medications may cause nausea, you should typically eat light foods as you take your pain medications. Pain medications may also cause constipation. If you have difficulty with this, discuss with your doctor. Dressing / Incision Call your doctor if your incision/area has: Continuous Slow Oozing, Sudden Increased Bleeding, Increased Pain/ Swelling, Increased Redness and Foul Smelling Discharge Call your doctor if you observe: Fever of 101 or Higher Suture Line Care: Avoid Pulling/Pushing and Avoid Pinching/Bending Remove Dressing in: 2 days (Remove clear bandages in 2 days, remove Steri- Stripsin 7 to 10 days.) Cleanse incision/area with: Soap & Water Follow Up Care Please Follow Up With: Pj Negro MD When: Please call to schedule 2 week follow up appointment. [phone] Test Results: Test results from this visit will be discussed in further detail at your follow- up appointment, if applicable. Discharge Plan Admission Attending Provider: Pj Negro Primary Care Provider: MINA BARRY Instructions Additional Instructions / Restrictions: Alternate ibuprofen and Tylenol for pain, Percocet for breakthrough pain. Discharge Orders/Prescriptions Prescriptions: New oxycodone-acetaminophen [Percocet] 5-325 mg tablet 1 tab PO Q6H PRN (Reason: pain) 5 Days Qty: 20 0RF No Action meloxicam 15 mg tablet 15 mg PO DAILY Label Comments: TAKE 1 TABLET BY MOUTH DAILY FOR 14 DAYS oxycodone 5 mg tablet 5 mg PO Q6H PRN (Reason: pain) 4 Days Qty: 16 0RF Referrals / Follow Up: MINA BARRY MD [Primary Care Provider] - Disposition Disposition (needs filled in before D/C Order can be placed): Home, Self Care 04/01/23 1433<Electronically signed by Pj Negro MD>Pj Negro MD CC: MINA BARRY MD ~ Signed [facility] Work Phone: Evaluation noteNo assessment information available [facility] Work Phone: Evaluation note* Diagnosis Pharyngitis, unspecified etiology- Primary Viral illness Unspecified viral infection, in conditions classified elsewhere and of unspecified site documented in this encounter [facility]* Diagnosis Onset Date Resolution Status Contusion of right ankle acu te Vasovagal syndrome acute [facility] Work Phone: Evaluation note* Diagnosis Onset Date Resolution Status Contusion of right ankle acu te Vasovagal syndrome acute Hernia, umbilical acute [facility] Work Phone: Evaluation note* Diagnosis Subjective tinnitus, unspecified laterality- Primary Vertigo Dizziness and giddiness documented in this encounter [facility] [place] [facility]* Diagnosis Noise-induced hearing loss of both ears- Primary Subjective tinnitus, unspecified laterality Vertigo Dizziness and giddiness [facility] in [facility] Additional Instructions Thank you for trusting us with your care today! Please take Tylenol (2 pills, 650 mg), ibuprofen (2 pills, 400 mg) every 6 hours as needed for pain and fever control. Please return to the emergency department if your symptoms change or worsen. Please follow with your primary care physician for further outpatient evaluation and management.[facility] Work Phone: Hospital Discharge instructions Additional Instructions Call Dr. Negro's office tomorrow at 7 AM to be seen tomorrow [facility] Work Phone: Summary Purpose Family History No Family History Records FoundNo Family History Records FoundNo Family History Records FoundNo Family History Records Found Advance Directives No Advanced Directives Records Found Advance Directive Response Recorded Date/ Time Living Will No February 11, 2023 11 :51am Power of Parking Officer No February 11, 2023 11:51am Advance Directive Response Recorded Date/ Time Name of Medical Power of Parking Officer Ashley March 26, 2023 6:43pm Living Will Yes March 26, 2023 6:43pm Power of Parking Officer Yes March 26 6:43pm Advance Directive Response Recorded Date/ Time Name of Medical Power of Parking Officer Ashley March 26, 2023 6:43pm Name of Medical Power of Parking Officer SPOUSE March 31, 2023 11:17am Living Will Yes March 31, 2023 11:17am Power of Parking Officer Yes March 31 11:17am Chief Complaint and Reason for Visit Chief Complaint STOOL Chief Complaint RIGHT ANKLE Chief Complaint RIGHT ANKLE POST 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 Reason for Visit Contusion of right a nkle Vasovagal syndrome Chief Complaint RIGHT ANKLE POST 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 UMBILICAL HERNIA ER 03/26 umbilical hernia repair umbilical hernia repair Reason for Visit Contusion of right a nkle Vasovagal syndrome Hernia, umbilical Health Concerns Infection Onset Date Last Indicated Resolved Time COVID-19 Rule-Out 07/28/2022 07/28/2022 Reason for Referral Specialty Diagnoses / Procedures Referred By Marga mauricio Referred To Contact Otolaryngology Diagnoses Subjective tinnitus, unspecified laterality Vertigo Massimo Rodrigues DO [address] [place] [id number] Francis Jeff MD [address] [place] [id number] Referral ID Status Reason Start Date Expiration Date V isits Requested Visits Authorized [id number] Authorized 06/10/2023 06/09/2024 1 1 Specialty Diagnoses / Procedures Referred By Marga mauricio Referred To Contact Audiology Diagnoses Subjective tinnitus, unspecified laterality Vertigo Noise-induced hearing loss of both ears Von Quiñonez, TERESITA [address] [place] [address] Alyson Franks AuD [address] [place] [id number] Referral ID Status Reason Start Date Expiration Date V isits Requested Visits Authorized [id number] Authorized 07/16/2023 07/15/2024 1 1 Additional Source Comments (unrecognized sect ion and content) No Status Records FoundNo Status Records FoundNo Status Records FoundNo Status Records Found INFORMATION SOURCE (unrecogn ized section and content) DATE CREATED AUTHOR 03/26/[address] [facility] ([place]) DATE CREATED AUTHOR AUTHOR'S ORGANIZ ATION 03/27/2018 [facility] DATE CREATED AUTHOR AUTHOR'S ORGANIZ ATION 07/30/2022 [facility] DATE CREATED AUTHOR AUTHOR'S ORGANIZ ATION 04/10/2025 [facility] Goals (unrecognized section and content) Goals may be documented in a n alternate sectionGoals may be documented in an alternate sectionGoals may be documented in an alternate section Source Comments (unrecognize d section and content) In the event this informatio n is protected by the Federal Confidentiality of Alcohol and Drug Abuse Patient Records regulations: The Federal rules restrict any use of the information to criminally investigate or prosecute any alcohol or drug abuse patient.[facility] Reason for Visit (unrecogniz ed section and content) Reason Comments Fever ST, congestion, body aches x1 day Reason Comments Tinnitus New Patient-Peripher al Vertigo Specialty Diagnoses / Procedures Referred By Contonesimo mauricio Referred To Contact Otolaryngology Diagnoses Subjective tinnitus, unspecified laterality Vertigo Massimo Rodrigues DO [address] [place] [address] [place], Von [place], [employer] [address] [facility] [address] [place] [address] Referral ID Status Reason Start Date Expiration Date Visits Re quested Visits Authorized [id number] Closed 06/10/2023 06/09/2024 1 1 Care Teams (unrecognized sec tion and content) Team Status: Active Member Role Status Sahil BARRY Family Provider Active MINA BARRY MD Primary Care Provider Active Team Status: Inactive Member Role Status Sahil BARRY MD Primary Care Provider Active Dr. Tez Webb DO Emergency Provider Active Team Status: Inactive Member Role Status Sahil BARRY MD Primary Care Provider, Referring Pro vider Active Ozzy LI, PA Attending Provider Active Team Status: Inactive Member Role Status Sahil BARRY MD Primary Care Provider, Referring Pro vider Active Adryan James PA, PA Attending Provider Active Team Status: Inactive Member Role Status Sahil BARRY MD Primary Care Provider Active Dr. Tez Webb DO Attending Provider, Emergency P rovider Active Team Status: Inactive Member Role Status Sahil BARRY MD Primary Care Provider Active Dr. Ines Nazario DO Emergency Provider Active Team Status: Inactive Member Role Status Sahil BARRY MD Primary Care Provider, Referring Pro vider Active Dr. Pj Negro MD Attending Provider Active Team Status: Active Member Role Status Sahil BARRY MD Primary Care Provider Active Dr. Pj Negro MD Attending Pr ovider, Referring Provider, Other Provider Active Team Status: Inactive Member Role Status Sahil BARRY MD Primary Care Provider Active Dr. Ines Nazario DO Attending Provider, Emergency Pro vider Active Team Status: Inactive Member Role Status Sahil BARRY MD Primary Care Provider Active Dr. Pj Negro MD Attending Provider, Referr ing Provider Active District Court Reporter Relationship Specialty Start Date End Date Massimo Rodrigues DO [facility] [place] [address] PCP - General Family Medicine 06/10/[address] Relationship Specialty Start Date End Date Jorge [place] [address] PCP - General Anesthesiology 07/16/23 FOR RECORDS PERTAINING TO PATIENTS WHO ARE OR HAVE BEEN ENROLLED IN A CHEMICAL DEPENDENCY/SUBSTANCEABUSE PROGRAM, SOME INFORMATION MAY BE OMITTED. This clinical summary was aggregated from multiple sources. Caution should be exercised in using it in the provision of clinical care. This summary normalizes information from multiple sources, and as a consequence, information in this document may materially change the coding, format and clinical context of patient data. In addition, data may be omitted in some cases. CLINICAL DECISIONS SHOULD BE BASED ON THE PRIMARY CLINICAL RECORDS. [employer] provides no warranty or guarantee of the accuracy or completeness of information in this document.
[2025-09-17 10:47] LABS: AST(SGOT) 29 U/L (<=37); Alanine Aminotransfer ALT/SGPT 31 U/L (<=46); Anion Gap 10 (5-15); BUN 9 mg/dL (4-19); BUN/Creat Ratio 11.9 RATIO (10-20); Calcium,Total 8.9 mg/dL (7.6-11.0); Carbon Dioxide 26.8 mmol/L (21.0-32.0); Chloride 105 mmol/L (98-108); Cholesterol 153 mg/dL (<=200); Glucose 99 mg/dL (70-99); Hepatitis C Antibody Nonreactive (Nonreactive); Low Density Lipoprotein Calc. 99 mg/dL; Potassium 3.6 mmol/L (3.3-5.1); Triglycerides 66 mg/dL; Very Low Density Lipoprotein 13 mg/dL (5-40); cholesterol:hdl ratio screen 3.71
== END | disposition home or self-care (01) ==
LOC: LAB 09:43
PROVIDERS: PCP Family Medicine; Referring Provider Family Medicine; Visit Provider Family Medicine
DX: Z00.00 Encounter for general adult medical examination without abnormal findings (principal); Z13.220 Encounter for screening for lipoid disorders; E66.811 Obesity, class 1; Z68.34 Body mass index [BMI] 34.0-34.9, adult; Z11.59 Encounter for screening for other viral diseases
CPT/HCPCS: 36415; 80048; 80061; 84450; 84460; 86803